=== PATIENT | male | born 1950 | race Caucasian/White ===

== ENCOUNTER 2023-01-28 07:52 | Outpatient (CLI) | payer MEDICARE, MEDICAID, SELFPAY | END 2023-01-28 07:53 | disposition home or self-care (01) | LOC: ANHAUDIO 07:54 | PROVIDERS: PCP Physician Assistant; Visit Provider Otolaryngology | DX: H90.3 Sensorineural hearing loss, bilateral (principal) | CPT/HCPCS: 92557; 92567 ==

== ENCOUNTER 2024-10-05 07:16 | Outpatient (CLI) | payer MEDICARE, MEDICAID, SELFPAY ==
--- NOTE | 2024-10-05 08:05 | ECG_ITS ---
Test Date: 2024-10-05 08:20:14 Measurements Intervals [place] Rate: 60 P: 46 VT: 200 QRS: 26 QRSD: 86 T: 44 QT: 413 QTc: 413 Interpretive Statements SINUS RHYTHM LOW QRS VOLTAGE IN PRECORDIAL LEADS [QRS DEFLECTION < 1.0 mV IN CHEST LEADS] POSSIBLE ANTERIOR MYOCARDIAL INFARCTION [30 ms Q WAVE IN V3/V4, OR R < 0.2 mV IN V4], OF INDETERMINATE AGE ABNORMAL ECG No previous ECG available for comparison Electronically Signed On 10-05-2024 10:59:44 RISK COMPLIANCE MANAGER by Wood Paz M.D.
[2024-10-05 08:43] LABS: Basophils Absolute Auto 0.1 K/mm3 (0.0-0.1); Basophils Percent Auto 0.7 % (0.2-1.2); Eosinophils Absolute Auto 0.3 K/mm3 (0-0.3); Eosinophils Percent Auto 4.9 % (0-4.4); Hematocrit 44.3 % (42.0-52.0); Hemoglobin 14.5 g/dL (14.0-18.0); Immature Granulocyte Absolute 0.02 K/mm3 (0.00-0.031); Immature Granulocyte Percent A 0.3 % (0-0.5); Lymphocytes Absolute Auto 1.51 K/mm3 (0.9-3.2); Lymphocytes Percent Auto 21.8 % (18.3-44.2); Mean Corpuscular HGB Conc 32.7 g/dl (32-36); Mean Corpuscular Hemoglobin 31.8 pg (26-34); Mean Corpuscular Volume 97.1 fl (80-100); Monocytes Absolute Auto 0.9 K/mm3 (0.1-0.6); Neutrophils Absolute Auto 4.1 K/mm3 (1.3-6.7); Neutrophils Percent Auto 59.3 % (45.5-73.1); Platelet Count Result 262 k/mm3 (150-375); Red Blood Count 4.56 M/mm3 (4.6-6.20); Red Cell Distribution Width 12.6 % (11.5-14.5); White Blood Count 6.9 K/mm3 (4.5-10.0)
[2024-10-05 08:49] LABS: Add Urine Microscopic? NO; Appearance Urine Clear (Clear); Bilirubin Urine Negative (Negative); Blood Urine Negative (Negative); Color Urine Yellow (Yellow); Glucose Urine UA Negative (Negative); Ketones Urine Negative (Negative); Leukocyte Esterase Ur Negative LEU/UL (Negative); Nitrate Urine Negative (Negative); Protein Urine Negative (Negative); Specific Grav Ur 1.015 (1.001-1.035); pH Urine 7.5 (5.0-9.0)
[2024-10-05 09:15] LABS: Anion Gap 5 mmol/L (4-12); Blood Urea Nitrogen 17 mg/dL (9-20); Calcium 10.2 mg/dL (8.4-10.2); Carbon Dioxide 31 mmol/L (22-30); Chloride 104 mmol/L (98-107); Estimated Glomerular Filt Rate 59; Glucose 116 mg/dL (65-110); Potassium 4.5 mmol/L (3.4-5.0); Prothrombin Time 14.1 Seconds (11.1-14.7); Sodium 140 mmol/L (137-145)
[2024-10-05 09:16] LABS: Partial Thromboplastin Time 33.3 Seconds (22.3-36.8)
== END 2024-10-05 07:17 | disposition home or self-care (01) ==
LOC: ANHSURGERY 07:23
PROVIDERS: PCP Internal Medicine; Visit Provider Neurological Surgery
DX: M48.062 Spinal stenosis, lumbar region with neurogenic claudication (principal); Z01.818 Encounter for other preprocedural examination
CPT/HCPCS: 36415; 80048; 81003; 85025; 85610; 85730; 93005

== ENCOUNTER 2024-10-05 09:20 | Outpatient (CLI) | payer MEDICARE, MEDICAID, SELFPAY ==
--- NOTE | ~2024-10-05 | MR_ITS ---
MRI of the lumbar spine Clinical History: Spinal stenosis Technique: Axial T2-weighted images, and sagittal T1-weighted, T2-weighted, and T2 fat-sat images wer e acquired. Findings: There is no fracture or subluxation of the lumbar spine. Vertebral bodies maintain normal h eight and alignment. No bone marrow signal reality seen. At L1-L2, there is no disc bulge or herniation. There is moderate facet arthropathy. No central canal stenosis or neural foraminal narrowing. At L2-L3, there is minimal disc bulge with advanced facet arthropathy. There is mild central canal st enosis/thecal sac compression. There is mild bilateral neural foraminal narrowing, right worse than l eft. At L3-L4, there is severe facet arthropathy without significant disc bulge or herniation. There is mi nimal central canal stenosis. There is minimal bilateral neural foraminal narrowing. At L4-L5, disc bulge and severe facet arthropathy result in severe spinal canal stenosis/thecal sac c ompression. There is moderate to advanced left neural foraminal narrowing, and mild right neural fora peter narrowing. At L5-S1, there is advanced facet arthropathy. No disc bulge or herniation. No spinal canal stenosis. There is mild bilateral neural foraminal narrowing, right worse than left. Paravertebral soft tissues are unremarkable. Impression: Severe degenerative spondylosis at L4-L5, as detailed above. Additional moderate degenerative changes, as above. Reviewed, dictated and finalized at [facility]. HAND Impression: Severe degenerative spondylosis at L4-L5, as detailed above. Additional moderate degenerative changes, as above.
== END 2024-10-05 09:21 | disposition home or self-care (01) ==
PROVIDERS: PCP Internal Medicine; Visit Provider Neurological Surgery
DX: M48.062 Spinal stenosis, lumbar region with neurogenic claudication (principal); M47.896 Other spondylosis, lumbar region
CPT/HCPCS: 72148

== ENCOUNTER 2024-12-14 08:26 | Outpatient (CLI) | payer MEDICARE, MEDICAID, SELFPAY ==
--- OUTSIDE RECORDS SUMMARY | 2024-12-14 08:57 | XMS_ITS | CONTINUITY OF CARE DOCUMENT ---
Author Name shy begum Address Unknown Organization [facility] Address [address] [place] [address] Phone [phone] Care Team Providers Care Business Insurance Agent Name Role Phone Nilson SIMPSON, Sveta Unavailable [phone] NICA ROSSI MD Unavailable NICA ROSSI MD Unavailable PROBLEMS Condition Status Date Provider Notes Hyperlipidemia active ? Sveta Devine MD Hypertension active ? Sveta Devine MD Shortness of breath- echo nm l LV, LVH, diastolic dysfn 08/24 active Sveta Devine MD Chest pain- CAth 04/23 - nl cors active Alli Devine MD Dizziness active Sveta Devine MD Leg edema, bilateral- venous insufficiency on ultrasound 08/24 active Sveta Devine MD CAD - mild CAD 10/10/24 active Dash Fry Cardiology examination active Dash Fry MCKENZIE--mild, no cpap active Ramez Godoy ENCOUNTERS Date Type Provider Location Encounter Diag nosis 3 - 3 In-person encounter Office Visit Sveta Devine MD [facility] Cardiology examinationCAD - mild CAD 10/10/24 7 - 7 In-person encounter Office Visit Sveta Devine MD [facility] 7 - 7 In-person encounter Office Visit Sveta Devine MD [facility] Shortness of breath- echo nml LV, LVH, diastolic dysfn 08/24Leg edema, bilateral- venous insufficiency on ultrasound 08/24 0 - 0 In-person encounter Office Visit Sveta Devine MD [facility] MCKENZIE--mild, no cpapLeg edema, bilateral- venous insufficiency on ultrasound 08/24 8 - 8 In-person encounter Office Visit Sveta Devine MD [facility] Chest pain- CAth 04/23 - nl cors 7 - 7 In-person encounter Office Visit Sveta Devine MD [facility] 0 - 0 In-person encounter Office Visit Sveta Devine MD [facility] 8 - 8 In-person encounter Office Visit Sveta Devine MD [facility] Chest pain- CAth 04/23 - nl cors 0 - 0 In-person encounter Office Visit Sveta Devine MD [facility] Shortness of breath- echo nml LV, LVH, diastolic dysfn 08/24Chest pain- CAth 04/23 - nl cors 9 - 9 In-person encounter Office Visit Sveta Devine MD [facility] HyperlipidemiaHypertensionShortness of breath- echo nml LV, LVH, diastolic dysfn 08/24Chest pain- CAth 04/23 - nl corsDizziness VITAL SIGNS Date Observation Value Provider Body Mass Index (Ratio) 43.85 kg/m2 Alli Devine MD blood pressure, diastolic 78 mm[Hg] Felicitas Toussaint blood pressure, systolic 112 mm[Hg] Krystal Toussaint oxygen saturation, oximetry 95 % Lauren Toussaint pulse rate 64 /min Lauren Toussaint respiratory rate E&M 13 /min Lauren Toussaint weight E&M 280 [lb_av] Lauren Toussaint height E&M 67 [in_i] Lauren Toussaint blood pressure, cuff size regular Felicitas Toussaint Body Mass Index (Ratio) 42.60 kg/m2 Alli Devine MD blood pressure, cuff size regular Ja rret blood pressure, diastolic 74 mm[Hg] Ja rret blood pressure, systolic 114 mm[Hg] Jar ret pulse rate 64 /min Claudy oxygen saturation, oximetry 96 % Claudy respiratory rate E&M 16 /min Claudy weight E&M 272 [lb_av] Claudy height E&M 67 [in_i] [facility] y Body Mass Index (Ratio) 43.54 kg/m2 Alli Devine MD blood pressure, cuff size regular Cierra mccloud Barry blood pressure, diastolic 72 mm[Hg] [facility] blood pressure, systolic 118 mm[Hg] Jarvis [facility] oxygen saturation, oximetry 93 % [facility] respiratory rate E&M 16 /min [facility] rate 77 /min [facility] weight E&M 278 [lb_av] [facility] height E&M 67 [in_i] [facility] Body Mass Index (Ratio) 44.16 kg/m2 Alli Devine MD blood pressure, diastolic 81 mm[Hg] Li nkLogic blood pressure, systolic 114 mm[Hg] [place] kLogic blood pressure, cuff size regular Ja rret blood pressure, diastolic 81 mm[Hg] Ja rret blood pressure, systolic 114 mm[Hg] Jar ret pulse rate 64 /min Claudy y oxygen saturation, oximetry 95 % Claudy respiratory rate E&M 12 /min Claudy weight E&M 282 [lb_av] Claudy y height E&M 67 [in_i] Claudy y Body Mass Index (Ratio) 43.85 kg/m2 Alli Devine MD blood pressure, cuff size regular tiffanie Grover blood pressure, diastolic 79 mm[Hg] tiffanie Grover blood pressure, systolic 119 mm[Hg] [facility] madison Grover weight E&M 280 [lb_av] Tala Grover height E&M 67 [in_i] Tala Grover pulse rate 71 /min Tala Grover oxygen saturation, oximetry 96 % Tala Grover respiratory rate E&M 18 /min Tala Grover Body Mass Index (Ratio) 42.16 kg/m2 Alli Devine MD pulse rate 65 /min Katelyn Mak respiratory rate E&M 18 /min Katelyn jackman weight E&M 269.2 [lb_av] Katelyn Mak oxygen saturation, oximetry 96 % Katelyn Mak blood pressure, cuff size large St acmagdalene Mak blood pressure, diastolic 78 mm[Hg] St acy Obdulio blood pressure, systolic 128 mm[Hg] Sta josefina Mak height E&M 67 [in_i] Katelynjosefina Mak Body Mass Index (Ratio) 41.50 kg/m2 Alli Devine MD blood pressure, cuff size large In cassandra [place] blood pressure, diastolic 100 mm[Hg] Mi cassandra [place] blood pressure, systolic 170 mm[Hg] [facility] [place] oxygen saturation, oximetry 98 % Judy Sim pulse rate 70 /min Judy stewart respiratory rate E&M 16 /min Elina jer Sim weight E&M 265 [lb_av] Judy Blake stewart height E&M 67 [in_i] Judy stewart Body Mass Index (Ratio) 40.87 kg/m2 Alli Devine MD respiratory rate E&M 16 /min [facility] blood pressure, diastolic 81 mm[Hg] [facility], systolic 134 mm[Hg] Ton [facility] oxygen saturation, oximetry 98 % [facility] pulse rate 88 /min [facility] weight E&M 261 [lb_av] [facility] height E&M 67 [in_i] [facility] Body Mass Index (Ratio) 44.32 kg/m2 Alli Devine MD blood pressure, cuff size large Cr radha Liao blood pressure, diastolic 96 mm[Hg] Cr radha Liao blood pressure, systolic 142 mm[Hg] Cry stal [place] oxygen saturation, oximetry 97 % Emily Liao respiratory rate E&M 17 /min Emily Liao pulse rate 77 /min Emily jean baptiste weight E&M 283 [lb_av] Emily jean baptiste height E&M 67 [in_i] Emily Nicole s Body Mass Index (Ratio) 44.32 kg/m2 Alli Devine MD blood pressure, diastolic 100 mm[Hg] Ki nikhil David blood pressure, systolic 150 mm[Hg] Oseas David oxygen saturation, oximetry 98 % Dmitri David respiratory rate E&M 16 /min Dmitri David pulse rate 65 /min [place] David blood pressure, resting Yes Kill een David weight E&M 283 [lb_av] [place] David height E&M 67 [in_i] Dmitri David ALLERGIES No Known Drug Allergies HISTORY OF MEDICATION USE Medication Status Instructions Dates Provider Indications [facility] ments atorvastatin 40 mg tablet active TAKE 1 TABLET BY MOUTH DAILY 12/07 Sveta Devine MD losartan-hydrochlorot hiazide 100-25 mg tablet active TAKE 1 TABLET BY MOUTH DAILY 12/07 Sveta Devine MD methocarbamol 750 mg tablet active TAKE 1 TABLET BY MOUTH FOUR TIMES A DAY Sveta Devine MD amlodipine 10 mg tablet active Take 1 tablet by mouth once a day 12/05 Sveta Devine MD gabapentin 600 mg tablet active Take 1 tablet by mouth once a day Sveta Devine MD atorvastatin 40 mg tablet completed TAKE 1 TABLET BY MOUTH EVERY DAY 07/24 - 12/07 Sveta Devine MD aspirin 81 mg tablet,chewable active TAKE 1 TABLET BY MOUTH EVERY DAY 05/26 Sveta Devine MD metoprolol tartrate 25 mg tablet active Take 1 tablet by mouth twice a day 05/26 Sveta Devine MD metoprolol tartrate 25 mg tablet completed Take 1 tablet by mouth twice a day TAKE 1 TABLET BY MOUTH TWICE A DAY 04/30 - 05/26 Romelia Christensen aspirin 81 mg tablet,chewable completed Take 1 tablet by mouth once a day TAKE 1 TABLET BY MOUTH EVERY DAY 04/30 - 05/26 Romelia Gaminos atorvastatin 40 mg tablet completed Take 1 tablet by mouth once a day TAKE 1 TABLET BY MOUTH EVERY DAY 04/30 - 07/24 Atiya Stock losartan-hydrochlorot hiazide 100-25 mg tablet completed Take 1 tablet by mouth once a day 04/21 - 12/07 Sveta Devine MD aspirin 81 mg tablet,delayed release (DR/EC) completed 1 tablet by mouth once a day 12/20 - 04/30 Judy Sim naproxen 500 mg tablet completed 1 tablet by mouth twice a day 12/20 - 03/08 Sveta Devine MD losartan 100 mg tablet completed Take 1 tablet once a day 12/20 - 04/21 Ramez Godoy hydrochlorothiazide 25 mg tablet completed tablet by mouth 12/20 - 04/21 Ramez Godoy amlodipine 10 mg tablet completed TAKE 1 TABLET DAILY 12/20 - 12/05 Margo Dickson NORVASC 5 MG ORAL TABLET completed 1 tab daily 05/31 - 12/20 Sveta Devine MD CLARITIN 10 MG ORAL CAPSULE completed 1 tab daily 05/10 - 12/20 Sveta Devine MD SIMVASTATIN 40 MG ORAL TABLET completed take 1 tab once daily 05/10 - 12/20 Sveta Devine MD HYZAAR 100-25 MG ORAL TABLET completed 1 Tab daily 07/14 - 12/20 Sveta Devine MD #90, 90 days supply, Filled SOCIAL HISTORY Date Observation Value Provider smoking status Never smoker Dash Fry smoking status Never smoker Yamileth Garay social history reviewed E&M revi ewed - no changes required Sveta Devine MD social history reviewed E&M revi ewed - no changes required Ramez Godoy social history E&M S moking History: Wai smith has never smoked. Sveta Devine MD social history reviewed E&M revi ewed - no changes required Sveta Devine MD smoking status Never smoker Tala Grover social history reviewed E&M revi ewed - no changes required Ramez Godoy social history reviewed E&M revi ewed - no changes required Ramez Godoy social history E&M S moking History: Wia smith has never smoked. Sveta Devine MD social history reviewed E&M revi ewed - no changes required Sveta Devine MD smoking status Never smoker Julieth Vargas social history reviewed E&M revi ewed - no changes required Sveta Devine MD social history E&M S moking History: P atient has never smoked. Sveta Devine MD smoking status Never smoker Emily Mccarty ams social history E&M S moking History: Wai smith has never smoked. Sveta Devine MD social history reviewed E&M revi ewed - no changes required Sveta Devine MD number of grandchildren Sveta Pugh porter Joann smoking status Never smoker Dmitri greenwood FAMILY HISTORY Family Member Condition First Degree Blood Relative No Known Fam bertha History INSURANCE PROVIDERS Payer name Policy type / Coverage type [place] red [facility] Medicaid 1 [id number] [place]IC[place] Medicare [id number] ADVANCE DIRECTIVES Name Date DISCUSSED - NO DECISION MADE TREATMENT PLAN Date Name Performer [id number],S, Ramez Oliver i [id number],S, Ramez Oliver i [id number],S, Ramez Oliver i [id number],S, Ramez Oliver i [id number],SRamez i [id number],B, Sveta Devine MD [id number],S, Sveta Devine MD [id number],S, Sveta Devine MD [id number],B, Sveta Dveine MD [id number],B, Ramez Oliver i [id number],S, Ramez Oliver i [id number],S, Ramez Oliver i [id number],S, Ramez Oliver i [id number],S, Ramez Oliver i [id number],S, Ramez Ahmedza i [id number],S, Ramez Ahmedza i [id number],W, Ramez Ahmedza i [id number],S, Ramez Ahmedza i [id number],B, Ramez Ahmedza i Cardiology Dash Nacht Cardiology Dash Nacht Cardiology Dash Nacht Cardiology:This visi t has been a part of the consistent, comprehensive, and ongoing management of the chronic medical condition(s) listed above for the patient. Dash Nacht Cardiology Dash Nacht Cardiology Ramez Ahmedzai Cardiology Ramez Ahmedzai Cardiology Ramez Ahmedzai Cardiology Ramez Ahmedzai Cardiology Ramez Ahmedzai Cardiology Sveta Devine MD Cardiology Sveta Devine MD Cardiology Sveta Devine MD Cardiology Sveta Devine MD Cardiology Ramez Ahmedzai Cardiology Ramez Ahmedzai Cardiology Ramez Ahmedzai Cardiology Ramez Ahmedzai Cardiology Ramez Ahmedzai Cardiology Ramez Ahmedzai Cardiology Ramez Ahmedzai Cardiology Ramez Ahmedzai Cardiology Ramez Ahmedzai Cardiology Ramez Ahmedzai Cardiology Sveta Devine MD Cardiology Sveta Devine MD Cardiology Sveta Devine MD Cardiology Sveta Devine MD Cardiology Sveta Devine MD Cardiology Sveta Devine MD Cardiology Sveta Devine MD Cardiology Sveta Devine MD Cardiology Sveta Devine MD Cardiology Sveta Devine MD Cardiology Sveta Devine MD Cardiology Sveta Devine MD Cardiology Sveta Devine MD Cardiology Sveta Devine MD Date Name Venous Doppler Bilat eral LE - Reflux Complete Echo RPM (remote patient monitoring) DLCO - 80196 FRC - 40021 FVC - 34968 Sleep Study Home Complete Echo Stress Regadenoson Sleep Study Home HISTORY OF PROCEDURES Procedure Date Procedure Name Provider Procedure Notes S tatus Complex e/m visit add on Sveta Devine MD completed EKG Sveta Devine MD completed EKG Sveta Devine MD completed EKG Sveta Devine MD completed FVC / MVV - 38434 Sveta Devine MD co mpleted FRC - 90137 Sveta Devine MD complete d SpO2 w/o 6min walk/titration Sveta Devine MD completed Regadenoson, 4 units Sveta Devine MD completed Cardiolite, 2 units Sveta Devine MD completed SPECT Images Sveta Devine MD complet ed Stress EKG Sveta Devine MD completed EKG Sveta Devine MD completed
--- OUTSIDE RECORDS SUMMARY | 2024-12-14 08:58 | XMS_ITS | Data Portability ---
Author Organization [facility] BORISJillian Bennett Jonel Address [address] [place] [address] Care Team Providers Care Pipe Bender Name Role Phone LANDEN KING Primary Care Provider [phone] Assessment Encounter Date Assessment Date Assessment LastModified by Organization Details LastModified Time 03/04/2024 03/04/2024 Blood work. Will try to get his old upper endoscopy I see Dominguez's is mentioned a couple of times I do not see a proton pump inhibitor on his current medicine list manage he is just I will see him back in 4 months for now he will continue current therapy [email or web address] Not available 03/20/2024 16:17:02 07/06/2024 07/06/2024 blood work. Colonoscopy. Continue current therapy. Follow up in 4 months. All diagnosis in the assessment and plan and they are management have been discussed see me in 4 months [email or web address] Not available 07/09/2024 13:27:25 Plan of Treatment Reminders Order Date Submit Date Provider Last Modified By Organization Details Last Modified Time Details Appointments ANY 15 2024 01:15P Vik Starkey MD Not available Not available Not available Lab HbA1c (hemogl obin A1c), blood 2022 023 [facility], [address], [address], [place], [address], 08/12/2023 08:29:21 CMP, serum or plasma 2022 023 [facility], [address], [address], [place], [address], 07/22/2023 06:18:16 albumin /creati nine, mass ratio, urine 2022 023 [facility], [address], [address], [place], [address], 07/22/2023 06:18:31 HbA1c (hemogl obin A1c), blood 2023 024 [facility], [address], [address], [place], [address], 03/05/2024 07:14:20 CBC w/ auto diff 2023 024 [facility], [address], [address], [place], [address], 03/05/2024 07:14:20 lipid panel, serum 2023 024 [facility], [address], [address], [place], [address], 03/05/2024 07:14:18 CMP, serum or plasma 2023 024 [facility], [address], [address], [place], [address], 03/05/2024 07:14:19 PSA, total, serum or plasma 2023 024 [facility], [address], [address], [place], [address], 07/07/2024 06:19:33 CBC w/ auto diff 2023 024 [facility], [address], [address], [place], [address], 07/07/2024 06:19:33 CMP, serum or plasma 2023 024 [facility], [address], [address], [place], [address], 07/07/2024 06:19:31 lipid panel, serum 2023 024 [facility], [address], [address], [place], [address], 07/07/2024 06:19:30 TSH, ultra-s ensitiv e, serum 2023 024 [facility], [address], [address], [place], [address], 07/07/2024 06:19:32 T3, free, serum or plasma 2023 024 [facility], [address] [facility] [address], [address], [place], [address], 07/07/2024 06:19:34 unliste d lab - T4, free 2023 024 [facility], [address] [facility], [address], [place], [address], 07/07/2024 06:19:31 Referral physica l therapi st referra l [address] [facility], [address] [place], [address], 06/18/2024 05:07:04 gastroe nterolo gist referra l - Please call patient for appoint ment, thanks! 2022 023 [place] [address] Andrae Mesa MD, [address] [facility], [address], [place], [address], 06/18/2024 05:07:05 pain managem ent referra l 2023 024 [email or web address] [facility], [address], [address], [place], [address], 06/18/2024 05:07:06 Procedures colonos copy screeni ng (PROC) 2023 024 [email or web address] [facility], [address] [facility] [address], [place], [address], 10/25/2024 11:37:14 Surgeries None recorde d. Imaging MRI, lumbar spine, w/o contras t 2022 023 [facility]), [address] [facility], [place], [address], 10/15/2023 15:09:15 Medication Orders gabapen tin 600 mg tablet 2022 023 [facility]/Pharmacy #[id number], [address], [place], [address], 07/21/2023 10:51:31 atorvas tatin 20 mg tablet 2022 023 [facility]/Pharmacy #[id number], [address], [place], [address], 07/21/2023 10:51:29 Difluca n 150 mg tablet 2022 023 [email or web address] [facility]/Pharmacy #[id number], [address], [place], [address], 03/04/2024 11:40:17 Calcium 600 + D(3) 600 mg-5 mcg (200 unit) capsule 2022 024 ATHENAFAX [facility]/Pharmacy #[id number], [address], [place], [address], 03/04/2024 11:41:56 Celebre x 100 mg capsule 2022 023 [id number] [address], [place], [address], 03/04/2024 11:40:22 amlodip ine 10 mg tablet 2022 023 [id number], [address] [place], [address], 07/21/2023 10:51:30 losarta n 100 mg-hydr ochloro thiazid e 25 mg tablet 2022 023 [id number], [address] , [place], [address], 07/21/2023 10:51:30 metopro lol tartrat e 25 mg tablet 2022 023 [id number], [address] [place], [address], 07/21/2023 10:51:31 gabapen tin 600 mg tablet 2022 023 [id number], [address] [place], [address], 03/04/2024 12:52:42 Celebre x 100 mg capsule 2022 023 [id number], [address] [place], [address], 03/04/2024 11:40:22 Calcium 600 + D(3) 600 mg-5 mcg (200 unit) capsule 2022 023 [id number], [address] [place], [address], 03/04/2024 11:40:35 sildena rigoberto 50 mg tablet 2022 024 [facility][id number], [address], [place], [place], [id number], 03/04/2024 11:41:26 metopro lol tartrat e 25 mg tablet 2022 023 [id number], [address], [place], [address], 10/16/2023 11:48:36 losarta n 100 mg-hydr ochloro thiazid e 25 mg tablet 2022 023 [id number], [address], [place], [address], 10/16/2023 11:48:35 amlodip ine 10 mg tablet 2022 023 [id number], [address], [place], [address], 10/16/2023 11:48:36 gabapen tin 600 mg tablet 2023 024 [id number], [address] [place], [address], 03/20/2024 16:11:44 omepraz ole 20 mg capsule ,delaye d release 2023 024 [id number], [address] , [place], [address], 07/06/2024 12:19:08 Patient TargetsNo targets recorded. Patient Instructions Encounter Date Encounter Id Patient Instructions Last Modified By Organization Details Last Modified Time 07/21/2023 [id number] learning about t ype 2 diabetes [facility] Not available 07/21/2023 10:26:55 type 2 diabetes: care instructions [facility] Not available 07/21/2023 10:26:55 A healthy lifestyle: care instructions [facility] Not available 07/21/2023 10:51:23 gastroesophageal reflux disease (GERD): care instructions [facility] Not available 07/21/2023 10:26:55 high cholesterol : care instructions [facility] Not available 07/21/2023 10:26:55 osteoarthritis: care instructions [facility] Not available 07/21/2023 10:45:41 learning about h igh blood pressure [facility] Not available 07/21/2023 10:26:54 09/17/2023 [id number] lumbar spinal stenosis: care instructions [facility] Not available 09/17/2023 10:39:34 learning about t ype 2 diabetes si Not available 09/17/2023 10:39:34 type 2 diabetes: care instructions [facility] Not available 09/17/2023 10:39:34 A healthy lifestyle: care instructions [facility] Not available 09/17/2023 10:39:34 high cholesterol : care instructions [facility] Not available 09/17/2023 10:39:34 Nonalcoholic Fat ty Liver Disease (NAFLD): Care Instructions [facility] Not available 09/17/2023 10:39:34 10/16/2023 [id number] learning about h igh blood pressure [facility] Not available 10/16/2023 11:48:31 high cholesterol : care instructions [facility] Not available 10/16/2023 11:48:31 07/06/[id number] nandini Jaramillo omeprazole 20 mg 1 qd for GERD, follow up 4 months [email or web address] Not available 07/06/2024 10:40:43 Reason for Referral Physical Therapist Referral for Spinal stenosis of lumbar region Referring Physician: Landen King, Internal Medicine, Encounter Date: 09/17/2023 Synchronizer Referral for Screening for malignant neoplasm of colon Please call patient for appointment, thanks! Referring Physician: Landen King, Internal Medicine, Encounter Date: 10/16/2023 Pain Management Referral for Spinal stenosis of lumbar region Referring Physician: Gallito Starkey, Internal Medicine, Encounter Date: 03/04/2024 Results Created Date Observation Date Name Description Value Unit Range Abnormal Flag Note LastModifiedBy Organization Detail LastModifiedTime 07/21/20 23 07/21/2023 COMP. METAB OLIC PANEL (14) glucose 111 mg/dL 70-99 above high normal Not Available [facility] & [address], [address], 07/22/2023 06:18:16 07/21/20 23 07/21/2023 COMP. METAB OLIC PANEL (14) BUN 19 mg/dL 8-27 Not Available [facility] & [address], [address], 07/22/2023 06:18:16 07/21/20 23 07/21/2023 COMP. METAB OLIC PANEL (14) creatinine 1.01 mg/dL 0.76-1 .27 Not Available [address], [address], 07/22/2023 06:18:16 07/21/20 23 07/21/2023 COMP. METAB OLIC PANEL (14) eGFR 79 >=60 Units for eGFR value s are mL/mi n/1.7 3 The eGFR Calcu latio n has not been valid ated for patie nts under the age of 18. If test resul ts are displ ayed for a patie nt under the age of 18, disre zayda that value . Not Available [address], [address], 07/22/2023 06:18:16 07/21/20 23 07/21/2023 COMP. METAB OLIC PANEL (14) BUN/creatini ne ratio 18 10-24 Not Available [address], [address], 07/22/2023 06:18:16 07/21/20 23 07/21/2023 COMP. METAB OLIC PANEL (14) sodium 139 mmol/ L 134-14 4 Not Available [address], [address], 07/22/2023 06:18:16 07/21/20 23 07/21/2023 COMP. METAB OLIC PANEL (14) potassium 4.8 mmol/ L 3.5-5. 2 Not Available [address], [address], 07/22/2023 06:18:16 07/21/20 23 07/21/2023 COMP. METAB OLIC PANEL (14) chloride 101 mmol/ L 96-106 Not Available [address], [address], 07/22/2023 06:18:16 07/21/20 23 07/21/2023 COMP. METAB OLIC PANEL (14) carbon dioxide, total 29 mmol/ L 20-29 Not Available [address], [address], 07/22/2023 06:18:16 07/21/20 23 07/21/2023 COMP. METAB OLIC PANEL (14) calcium 10.4 mg/dL 8.6-10 .2 above high normal Not Available [address], [address], 07/22/2023 06:18:16 07/21/20 23 07/21/2023 COMP. METAB OLIC PANEL (14) protein, total 7.0 g/dL 6.0-8. 5 Not Available [address], [address], 07/22/2023 06:18:16 07/21/20 23 07/21/2023 COMP. METAB OLIC PANEL (14) albumin 4.5 g/dL 3.8-4. 8 Not Available [address], [address], 07/22/2023 06:18:16 07/21/20 23 07/21/2023 COMP. METAB OLIC PANEL (14) globulin, total 2.5 g/dL 1.5-4. 5 Not Available [address], [address], 07/22/2023 06:18:16 07/21/20 23 07/21/2023 COMP. METAB OLIC PANEL (14) A/G ratio 2.0 1.2-2. 2 Not Available [address], [address], 07/22/2023 06:18:16 07/21/20 23 07/21/2023 COMP. METAB OLIC PANEL (14) bilirubin, total 0.6 mg/dL 0.0-1. 2 Not Available [address], [address], 07/22/2023 06:18:16 07/21/20 23 07/21/2023 COMP. METAB OLIC PANEL (14) alkaline phosphatase 46 IU/L 44-121 Not Available [address], [address], 07/22/2023 06:18:16 07/21/20 23 07/21/2023 COMP. METAB OLIC PANEL (14) AST (SGOT) 32 IU/L 0-40 Not Available [address], [address], 07/22/2023 06:18:16 07/21/20 23 07/21/2023 COMP. METAB OLIC PANEL (14) ALT (SGPT) 48 IU/L 0-44 above high normal Not Available [address], [address], 07/22/2023 06:18:16 07/21/20 23 07/22/2023 ALBUM IN/CR EATIN INE RATIO ,URIN E creatinine, urine 70.2 mg/dL notest ab. Not Available [address], [address], 07/22/2023 06:18:31 09/19/20 23 07/22/2023 ALBUM IN/CR EATIN INE RATIO ,URIN E albumin, urine 3.5 ug/mL notest ab. Not Available [address], [address], 07/22/2023 06:18:31 07/21/20 23 07/22/2023 ALBUM IN/CR EATIN INE RATIO ,URIN E alb/creat ratio 5 mg/g_ creat 0-29 Annel l: 0 - 29 Moder ately incre ased: 30 - 300 Sever shilo incre ased: >300 Not Available [address], [address], 07/22/2023 06:18:31 07/21/20 23 07/22/2023 DIABE LUIS DANIEL PATIE NT EDUCA TION pdf Not applic able Not Available [address], [address], 07/22/2023 06:18:32 07/21/20 23 07/22/2023 DIABE LUIS DANIEL PATIE NT EDUCA TION pdf . Not Available [address], [address], 07/22/2023 06:18:17 08/11/2008/12/2023 HCV ANTIB EMMETT hep C virus Ab Non Reacti ve nonrea ctive HCV antib emmett alone does not diffe renti ate betwe en previ ously resol florentino infec tion and activ e infec tion. Equiv ocal and React kelechi HCV antib emmett resul ts shoul d be follo wed up with an HCV RNA test to suppo rt the diagn osis of activ e HCV infec tion. Not Available [facility]) [address] [facility], [place], [address], 08/12/2023 08:29:20 08/11/2008/12/2023 HEP B SURFA CE AB, QUAL hep B surface Ab, qual Non Reacti ve Non React kelechi: Incon siste nt with immun ity, less than 10 mIU/m L React kelechi: Consi stent with immun ity, great er than 9.9 mIU/m L Not Available [facility] ([facility]) [address] [place], [address], 08/12/2023 08:29:22 08/11/2008/12/2023 HBSAG SCREE N HBsAg screen Negati ve negati ve Not Available [facility] ([facility]) [address] [place], [address], 08/12/2023 08:29:23 08/11/2008/12/2023 HEMOG LOBIN A1C hemoglobin A1C 6.0 % 4.8-5. 6 above high normal Predi abete s: 5.7 - 6.4 Diabe luis daniel: >6.4 Glyce tameka contr ol for adult s with diabe luis daniel: <7.0 Not Available [facility] ([facility]) [address] [facility], [place], [address], 08/12/2023 08:29:21 03/04/20 24 03/05/2024 LIPID PANEL cholesterol, total 138 mg/dL 100-19 9 Not Available [facility]) [address] [place], [address], 03/05/2024 07:14:18 03/04/20 24 03/05/2024 LIPID PANEL triglyceride s 105 mg/dL 0-149 Not Available [facility] [address] [place], [address], 03/05/2024 07:14:18 03/04/20 24 03/05/2024 LIPID PANEL HDL cholesterol 45 mg/dL >39 Not Available [facility] [address] [place], [address], 03/05/2024 07:14:18 03/04/20 24 03/05/2024 LIPID PANEL VLDL cholesterol angela 19 mg/dL 5-40 Not Available [facility] [address] [place], [address], 03/05/2024 07:14:18 03/04/20 24 03/05/2024 LIPID PANEL LDL chol calc ([facility]) 74 mg/dL 0-99 Not Available [facility] [address] [place], [address], 03/05/2024 07:14:18 03/04/20 24 03/05/2024 COMP. METAB OLIC PANEL (14) glucose 97 mg/dL 70-99 Not Available [facility]) [address] [facility], [place], [address], 03/05/2024 07:14:19 03/04/20 24 03/05/2024 COMP. METAB OLIC PANEL (14) BUN 15 mg/dL 8-27 Not Available [facility]) [address] [place], [address], 03/05/2024 07:14:19 03/04/20 24 03/05/2024 COMP. METAB OLIC PANEL (14) creatinine 1.14 mg/dL 0.76-1 .27 Not Available [facility]) [address] [place], [address], 03/05/2024 07:14:19 03/04/20 24 03/05/2024 COMP. METAB OLIC PANEL (14) eGFR 68 mL/mi n/1.7 3 >59 Not Available [facility] ([facility]) [address] [place], [address], 03/05/2024 07:14:19 03/04/20 24 03/05/2024 COMP. METAB OLIC PANEL (14) BUN/creatini ne ratio 13 10-24 Not Available [facility] [address], [place], [address], 03/05/2024 07:14:19 03/04/20 24 03/05/2024 COMP. METAB OLIC PANEL (14) sodium 138 mmol/ L 134-14 4 Not Available [facility]) [address], [place], [address], 03/05/2024 07:14:19 03/04/20 24 03/05/2024 COMP. METAB OLIC PANEL (14) potassium 4.6 mmol/ L 3.5-5. 2 Not Available [facility]) [address] [place], [address], 03/05/2024 07:14:19 03/04/20 24 03/05/2024 COMP. METAB OLIC PANEL (14) chloride 100 mmol/ L 96-106 Not Available [facility]) [address], [place], [address], 03/05/2024 07:14:19 03/04/20 24 03/05/2024 COMP. METAB OLIC PANEL (14) carbon dioxide, total 24 mmol/ L 20-29 Not Available [facility]) [address] [place], [address], 03/05/2024 07:14:19 03/04/20 24 03/05/2024 COMP. METAB OLIC PANEL (14) calcium 10.0 mg/dL 8.6-10 .2 Not Available [facility]) [address] [place], [address], 03/05/2024 07:14:19 03/04/20 24 03/05/2024 COMP. METAB OLIC PANEL (14) protein, total 6.6 g/dL 6.0-8. 5 Not Available [facility]) [address] [place], [address], 03/05/2024 07:14:19 03/04/20 24 03/05/2024 COMP. METAB OLIC PANEL (14) albumin 4.4 g/dL 3.8-4. 8 Not Available [facility]) [address] [facility], [place], [address], 03/05/2024 07:14:19 03/04/20 24 03/05/2024 COMP. METAB OLIC PANEL (14) globulin, total 2.2 g/dL 1.5-4. 5 Not Available [facility]) [address] [facility], [place], [address], 03/05/2024 07:14:19 03/04/20 24 03/05/2024 COMP. METAB OLIC PANEL (14) A/G ratio 2.0 1.2-2. 2 Not Available [facility]) [address] [facility], [place], [address], 03/05/2024 07:14:19 03/04/20 24 03/05/2024 COMP. METAB OLIC PANEL (14) bilirubin, total 0.6 mg/dL 0.0-1. 2 Not Available [facility]) [address] [facility], [place], [address], 03/05/2024 07:14:19 03/04/20 24 03/05/2024 COMP. METAB OLIC PANEL (14) alkaline phosphatase 58 IU/L 44-121 Not Available [facility] [address] [facility], [place], [address], 03/05/2024 07:14:19 03/04/20 24 03/05/2024 COMP. METAB OLIC PANEL (14) AST (SGOT) 30 IU/L 0-40 Not Available [facility]) [address] [facility], [place], [address], 03/05/2024 07:14:19 03/04/20 24 03/05/2024 COMP. METAB OLIC PANEL (14) ALT (SGPT) 42 IU/L 0-44 Not Available [facility]) [address] [facility], [place], [address], 03/05/2024 07:14:19 03/04/20 24 03/05/2024 HEMOG LOBIN A1C hemoglobin A1C 6.2 % 4.8-5. 6 above high normal Predi abete s: 5.7 - 6.4 Diabe luis daniel: >6.4 Glyce tameka contr ol for adult s with diabe luis daniel: <7.0 Not Available [facility] ([facility]) [address] [facility], [place], [address], 03/05/2024 07:14:19 03/04/20 24 03/05/2024 CBC WITH DIFFE RENTI AL/PL ATELE T WBC 6.8 x10e3 /uL 3.4-10 .8 Not Available [facility]) [address] [facility], [place], [address], 03/05/2024 07:14:20 03/04/20 24 03/05/2024 CBC WITH DIFFE RENTI AL/PL ATELE T RBC 4.66 x10e6 /uL 4.14-5 .80 Not Available [facility]) [address] [facility], [place], [address], 03/05/2024 07:14:20 03/04/20 24 03/05/2024 CBC WITH DIFFE RENTI AL/PL ATELE T hemoglobin 14.2 g/dL 13.0-1 7.7 Not Available [facility]) [address] [place], [address], 03/05/2024 07:14:20 03/04/20 24 03/05/2024 CBC WITH DIFFE RENTI AL/PL ATELE T hematocrit 42.7 % 37.5-5 1.0 Not Available [facility]) [address] [facility], [place], [address], 03/05/2024 07:14:20 03/04/20 24 03/05/2024 CBC WITH DIFFE RENTI AL/PL ATELE T MCV 92 fL 79-97 Not Available [facility]) [address] [facility], [place], [address], 03/05/2024 07:14:20 03/04/20 24 03/05/2024 CBC WITH DIFFE RENTI AL/PL ATELE T MCH 30.5 pg 26.6-3 3.0 Not Available [facility]) [address] [facility], [place], [address], 03/05/2024 07:14:20 03/04/20 24 03/05/2024 CBC WITH DIFFE RENTI AL/PL ATELE T MCHC 33.3 g/dL 31.5-3 5.7 Not Available [facility]) [address] [facility], [place], [address], 03/05/2024 07:14:20 03/04/20 24 03/05/2024 CBC WITH DIFFE RENTI AL/PL ATELE T RDW 12.3 % 11.6-1 5.4 Not Available [facility]) [address] [facility], [place], [address], 03/05/2024 07:14:20 03/04/20 24 03/05/2024 CBC WITH DIFFE RENTI AL/PL ATELE T platelets 275 x10e3 /uL 150-45 0 Not Available [facility]) [address] [facility], [place], [address], 03/05/2024 07:14:20 03/04/20 24 03/05/2024 CBC WITH DIFFE RENTI AL/PL ATELE T neutrophils 51 % notest ab. Not Available [facility]) [address] [facility], [place], [address], 03/05/2024 07:14:20 03/04/20 24 03/05/2024 CBC WITH DIFFE RENTI AL/PL ATELE T lymphs 29 % notest ab. Not Available [facility]) [address] [facility], [place], [address], 03/05/2024 07:14:20 03/04/20 24 03/05/2024 CBC WITH DIFFE RENTI AL/PL ATELE T monocytes 12 % notest ab. Not Available [facility]) [address] [facility], [place], [address], 03/05/2024 07:14:20 03/04/20 24 03/05/2024 CBC WITH DIFFE RENTI AL/PL ATELE T eos 7 % notest ab. Not Available [facility] [address] [facility], [place], [address], 03/05/2024 07:14:20 03/04/20 24 03/05/2024 CBC WITH DIFFE RENTI AL/PL ATELE T basos 1 % notest ab. Not Available [facility] [address] [facility], [place], [address], 03/05/2024 07:14:20 03/04/20 24 03/05/2024 CBC WITH DIFFE RENTI AL/PL ATELE T neutrophils (absolute) 3.6 x10e3 /uL 1.4-7. 0 Not Available [facility]) [address] [place], [address], 03/05/2024 07:14:20 03/04/20 24 03/05/2024 CBC WITH DIFFE RENTI AL/PL ATELE T lymphs (absolute) 2.0 x10e3 /uL 0.7-3. 1 Not Available [facility]) [address] [place], [address], 03/05/2024 07:14:20 03/04/20 24 03/05/2024 CBC WITH DIFFE RENTI AL/PL ATELE T monocytes(ab solute) 0.8 x10e3 /uL 0.1-0. 9 Not Available [facility] [address] [facility], [place], [address], 03/05/2024 07:14:20 03/04/20 24 03/05/2024 CBC WITH DIFFE RENTI AL/PL ATELE T eos (absolute) 0.5 x10e3 /uL 0.0-0. 4 above high normal Not Available [facility] [address] [facility], [place], [address], 03/05/2024 07:14:20 03/04/20 24 03/05/2024 CBC WITH DIFFE RENTI AL/PL ATELE T baso (absolute) 0.0 x10e3 /uL 0.0-0. 2 Not Available [facility]) [address] [facility], [place], [address], 03/05/2024 07:14:20 03/04/20 24 03/05/2024 CBC WITH DIFFE RENTI AL/PL ATELE T immature granulocytes 0 % notest ab. Not Available [facility]) [address] [facility], [place], [address], 03/05/2024 07:14:20 03/04/20 24 03/05/2024 CBC WITH DIFFE RENTI AL/PL ATELE T immature grans (abs) 0.0 x10e3 /uL 0.0-0. 1 Not Available [facility]) [address] [place], [address], 03/05/2024 07:14:20 07/06/20 24 07/07/2024 LIPID PANEL cholesterol, total 205 mg/dL 100-19 9 above high normal Not Available [facility] ([facility]) [address] [place], [address], 07/07/2024 06:19:30 07/06/20 24 07/07/2024 LIPID PANEL triglyceride s 155 mg/dL 0-149 above high normal Not Available [facility] ([facility]) [address] [place], [address], 07/07/2024 06:19:30 07/06/20 24 07/07/2024 LIPID PANEL HDL cholesterol 44 mg/dL >39 Not Available [facility] ([facility]) [address] [place], [address], 07/07/2024 06:19:30 07/06/20 24 07/07/2024 LIPID PANEL VLDL cholesterol angela 28 mg/dL 5-40 Not Available [facility] ([facility]) [address] [place], [address], 07/07/2024 06:19:30 07/06/20 24 07/07/2024 LIPID PANEL LDL chol calc ([facility]) 133 mg/dL 0-99 above high normal Not Available [facility] ([facility]) [address] [place], [address], 07/07/2024 06:19:30 07/06/20 24 07/07/2024 T4, FREE T4,free([facility] ct) 0.99 NG/dL 0.82-1 .77 Not Available [facility] [facility] [address] [place], [address], 07/07/2024 06:19:31 07/06/20 24 07/07/2024 COMP. METAB OLIC PANEL (14) glucose 114 mg/dL 70-99 above high normal Not Available [facility] ([facility]) [address] [place], [address], 07/07/2024 06:19:31 07/06/20 24 07/07/2024 COMP. METAB OLIC PANEL (14) BUN 14 mg/dL 8-27 Not Available [facility] ([facility]) [address] [place], [address], 07/07/2024 06:19:31 07/06/20 24 07/07/2024 COMP. METAB OLIC PANEL (14) creatinine 1.19 mg/dL 0.76-1 .27 Not Available [facility] ([facility]) [address] [place], [address], 07/07/2024 06:19:31 07/06/20 24 07/07/2024 COMP. METAB OLIC PANEL (14) eGFR 64 mL/mi n/1.7 3 >59 Not Available [facility] ([facility]) [address] [place], [address], 07/07/2024 06:19:31 07/06/20 24 07/07/2024 COMP. METAB OLIC PANEL (14) BUN/creatini ne ratio 12 10-24 Not Available [facility] ([facility]) [address] [place], [address], 07/07/2024 06:19:31 07/06/20 24 07/07/2024 COMP. METAB OLIC PANEL (14) sodium 139 mmol/ L 134-14 4 Not Available [facility] ([facility]) [address] [place], [address], 07/07/2024 06:19:31 07/06/20 24 07/07/2024 COMP. METAB OLIC PANEL (14) potassium 4.6 mmol/ L 3.5-5. 2 Not Available [facility] ([facility]) [address] [place], [address], 07/07/2024 06:19:31 07/06/20 24 07/07/2024 COMP. METAB OLIC PANEL (14) chloride 99 mmol/ L 96-106 Not Available [facility] ([facility]) [address] [place], [address], 07/07/2024 06:19:31 07/06/20 24 07/07/2024 COMP. METAB OLIC PANEL (14) carbon dioxide, total 24 mmol/ L 20-29 Not Available [facility] ([place] [facility]) [address] [place], [address], 07/07/2024 06:19:31 07/06/20 24 07/07/2024 COMP. METAB OLIC PANEL (14) calcium 10.2 mg/dL 8.6-10 .2 Not Available [facility] ([facility]) [address] [place], [address], 07/07/2024 06:19:31 07/06/20 24 07/07/2024 COMP. METAB OLIC PANEL (14) protein, total 7.2 g/dL 6.0-8. 5 Not Available [facility] ([facility]) [address] [place], [address], 07/07/2024 06:19:31 07/06/20 24 07/07/2024 COMP. METAB OLIC PANEL (14) albumin 4.6 g/dL 3.8-4. 8 Not Available [facility] ([facility]) [address] [place], [address], 07/07/2024 06:19:31 07/06/20 24 07/07/2024 COMP. METAB OLIC PANEL (14) globulin, total 2.6 g/dL 1.5-4. 5 Not Available [facility] ([facility]) [address] [place], [address], 07/07/2024 06:19:31 07/06/20 24 07/07/2024 COMP. METAB OLIC PANEL (14) bilirubin, total 0.6 mg/dL 0.0-1. 2 Not Available [facility] ([place] [facility]) [address] [place], [address], 07/07/2024 06:19:31 07/06/20 24 07/07/2024 COMP. METAB OLIC PANEL (14) alkaline phosphatase 49 IU/L 44-121 Not Available [facility] [address], [place], [address], 07/07/2024 06:19:31 07/06/20 24 07/07/2024 COMP. METAB OLIC PANEL (14) AST (SGOT) 34 IU/L 0-40 Not Available [facility] ([facility]) [address], [place], [address], 07/07/2024 06:19:31 07/06/20 24 07/07/2024 COMP. METAB OLIC PANEL (14) ALT (SGPT) 45 IU/L 0-44 above high normal Not Available [facility] ([facility]) [address] [facility], [place], [address], 07/07/2024 06:19:31 07/06/20 24 07/07/2024 TSH TSH 1.550 uIU/m L 0.450- 4.500 Not Available [facility] ([facility]) [address] [facility], [place], [address], 07/07/2024 06:19:32 07/06/20 24 07/06/2024 CBC WITH DIFFE RENTI AL/PL ATELE T WBC 6.5 x10e3 /uL 3.4-10 .8 Not Available [facility] ([facility]) [address] [facility], [place], [address], 07/07/2024 06:19:33 07/06/20 24 07/06/2024 CBC WITH DIFFE RENTI AL/PL ATELE T RBC 4.93 x10e6 /uL 4.14-5 .80 Not Available [facility] ([facility]) [address] [facility], [place], [address], 07/07/2024 06:19:33 07/06/20 24 07/06/2024 CBC WITH DIFFE RENTI AL/PL ATELE T hemoglobin 15.5 g/dL 13.0-1 7.7 Not Available [facility] ([facility]) [address] [facility], [place], [address], 07/07/2024 06:19:33 07/06/2007/06/2024 CBC WITH DIFFE RENTI AL/PL ATELE T hematocrit 47.3 % 37.5-5 1.0 Not Available [facility] ([facility]) [address] [facility], [place], [address], 07/07/2024 06:19:33 07/06/2007/06/2024 CBC WITH DIFFE RENTI AL/PL ATELE T MCV 96 fL 79-97 Not Available [facility] ([facility]) [address] [facility], [place], [address], 07/07/2024 06:19:33 07/06/2007/06/2024 CBC WITH DIFFE RENTI AL/PL ATELE T MCH 31.4 pg 26.6-3 3.0 Not Available [facility] ([facility]) [address] [place], [address], 07/07/2024 06:19:33 07/06/2007/06/2024 CBC WITH DIFFE RENTI AL/PL ATELE T MCHC 32.8 g/dL 31.5-3 5.7 Not Available [facility] ([facility]) [address] [place], [address], 07/07/2024 06:19:33 07/06/2007/06/2024 CBC WITH DIFFE RENTI AL/PL ATELE T RDW 12.0 % 11.6-1 5.4 Not Available [facility] ([facility]) [address] [place], [address], 07/07/2024 06:19:33 07/06/2007/06/2024 CBC WITH DIFFE RENTI AL/PL ATELE T platelets 285 x10e3 /uL 150-45 0 Not Available [facility]) [address] [facility], [place], [address], 07/07/2024 06:19:33 07/06/20 24 07/06/2024 CBC WITH DIFFE RENTI AL/PL ATELE T neutrophils 53 % notest ab. Not Available [facility] ([facility]) [address] [facility], [place], [address], 07/07/2024 06:19:33 07/06/20 24 07/06/2024 CBC WITH DIFFE RENTI AL/PL ATELE T lymphs 27 % notest ab. Not Available [facility] ([facility]) [address] [facility], [place], [address], 07/07/2024 06:19:33 07/06/20 24 07/06/2024 CBC WITH DIFFE RENTI AL/PL ATELE T monocytes 13 % notest ab. Not Available [facility] ([facility]) [address] [facility], [place], [address], 07/07/2024 06:19:33 07/06/20 24 07/06/2024 CBC WITH DIFFE RENTI AL/PL ATELE T eos 6 % notest ab. Not Available [facility] ([facility]) [address] [facility], [place], [address], 07/07/2024 06:19:33 07/06/20 24 07/06/2024 CBC WITH DIFFE RENTI AL/PL ATELE T basos 1 % notest ab. Not Available [facility] ([facility]) [address] [facility], [place], [address], 07/07/2024 06:19:33 07/06/20 24 07/06/2024 CBC WITH DIFFE RENTI AL/PL ATELE T neutrophils (absolute) 3.5 x10e3 /uL 1.4-7. 0 Not Available [facility] ([facility]) [address] [facility], [place], [address], 07/07/2024 06:19:33 07/06/20 24 07/06/2024 CBC WITH DIFFE RENTI AL/PL ATELE T lymphs (absolute) 1.7 x10e3 /uL 0.7-3. 1 Not Available [facility] ([facility]) [address] [facility], [place], [address], 07/07/2024 06:19:33 07/06/20 24 07/06/2024 CBC WITH DIFFE RENTI AL/PL ATELE T monocytes(ab solute) 0.8 x10e3 /uL 0.1-0. 9 Not Available [facility] ([facility]) [address] [facility], [place], [address], 07/07/2024 06:19:33 07/06/20 24 07/06/2024 CBC WITH DIFFE RENTI AL/PL ATELE T eos (absolute) 0.4 x10e3 /uL 0.0-0. 4 Not Available [facility] ([facility]) [address] [facility], [place], [address], 07/07/2024 06:19:33 07/06/20 24 07/06/2024 CBC WITH DIFFE RENTI AL/PL ATELE T baso (absolute) 0.1 x10e3 /uL 0.0-0. 2 Not Available [facility] ([facility]) [address] [facility], [place], [address], 07/07/2024 06:19:33 07/06/2007/06/2024 CBC WITH DIFFE RENTI AL/PL ATELE T immature granulocytes 0 % notest ab. Not Available [facility] ([facility]) [address] [facility], [place], [address], 07/07/2024 06:19:33 07/06/20 24 07/06/2024 CBC WITH DIFFE RENTI AL/PL ATELE T immature grans (abs) 0.0 x10e3 /uL 0.0-0. 1 Not Available [facility] ([facility]) [address] [facility], [place], [address], 07/07/2024 06:19:33 07/06/20 24 07/07/2024 PROST ATE-S PECIF IC AG prostate specific Ag 0.7 NG/mL 0.0-4. 0 Sascha ECLIA metho dolog y. Accor ding to the Ameri can [employer] g[employer] iatio n, Serum PSA shoul d decre ase and remai n at undet ectab le level s after radic al prost atect berenice. The AUA defin es bioch emica l recur rence as an initi al PSA value 0.2 ng/mL or great er follo wed by a subse quent confi rmato ry PSA value 0.2 ng/mL or great er. Value s obtai chano with diffe rent assay metho ds or kits canno t be used inter mancia eably . Resul ts canno t be inter prete d as absol eulalia evide nce of the prese nce or absen ce of ba verde se. Not Available [facility] ([facility]) [address] [facility], [place], [address], 07/07/2024 06:19:33 07/06/20 24 07/07/2024 TRIIO DOTHY ROSARIO E (T3), FREE triiodothyro nine (T3), free 3.5 pg/mL 2.0-4. 4 Not Available [facility] ([facility]) [address] [facility], [place], [address], 07/07/2024 06:19:34 09/11/20 23 09/11/2023 US, abdom en No observ ation record ed. [email or web address] [address] [facility], [place], [address], 09/15/2023 16:40:51 10/15/20 23 10/15/2023 MRI, lumba r spine , w/o contr ast No observ ation record ed. [facility] [address] [place], [address], 10/16/2023 11:27:02 08/11/20 24 08/11/2024 CT, abdom en + pelvi s, w/o contr ast No observ ation record ed. [facility] [address] [place], [address], 08/15/2024 10:22:34 10/05/20 24 10/05/2024 MRI, lumba r spine , w/o contr ast No observ ation record ed. [place] [id number], [place], [address], 10/06/2024 09:49:47 10/18/20 24 10/18/2024 XR, chest , 2 view No observ ation record ed. [facility] [address] [place], [address], 10/31/2024 14:42:29 10/19/20 24 10/19/2024 NM, myoca rdial perfu romi scan No observ ation record ed. [facility] [address] [place], [address], 10/31/2024 14:42:43 Result Notes None recorded. Problems Name Problem SNOMED Code Status Onset Date Resolution Date Notes Provider Name and Address Organization Details Recorded Time Lipoma of skin 818054538 Active 2017 Not Available [facility] 3 03:51:03 Screenin g for malignan t neoplasm of prostate Active 2017 Not Available [facility] 3 03:51:04 Bladder muscle dysfunct ion - overacti ve Active 2017 Not Available [facility] 3 03:51:03 Hepatiti s C screenin g Completed 201703/17/2018 Jerry Fuentes PA-C Attn: [place], [address] , [place] [facility] 8 10:56:01 Carpal tunnel syndrome of right wrist 48976319533 9108 Active 2017 repaired February 16, 2018. Dr. 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 797922808 Active 2019 Not Available [facility] 3 03:51:04 Costal chondrit is 32763229 Active 2019 Not Available [facility] 3 03:51:04 Chronic idiopath ic constipa tion 17221673 Active 2021 Not Available [facility] 3 03:51:04 Venereal disease screenin g Active 2021 Not Available [facility] 3 03:51:03 Right flank pain 866723135 Active 2021 Not Available [facility] 3 03:51:03 Dysuria 27221047 Active 2021 Not Available [facility] 3 03:51:04 Trigger thumb of right hand 43846853156 9105 Active 2021 Not Available [facility] 3 03:51:03 Bilatera l hearing loss 63494891 Active 2021 Not Available [facility] 3 03:51:04 Administ ration of tetanus vaccine Active 2021 Not Available [facility] 3 03:51:03 Administ ration of pneumoco ccal vaccine Active 2021 Not Available [facility] 3 03:51:03 Cough 18603780 Active 2021 Not Available [facility] 3 03:51:04 Screenin g for malignan t neoplasm of colon Active 2021 Not Available [facility] 3 03:51:03 Spinal stenosis of lumbar region 26714068 Active 2023 Gallito Starkey MD Attn: Accounting ,[address] [place], [address] , [place] [facility] 4 16:17:03 Chronic low back pain 292335647 Active 2023 Gallito Starkey MD Attn: Accounting ,[address] [place], [address] , [place] [facility] 4 16:17:07 Gastroes ophageal reflux disease without esophagi tis 436402284 Active 2023 Gallito Starkey MD Attn: Accounting ,[address] [place], [address] , [place] [facility] 4 16:17:25 Steatosi s of liver 331256961 Active 2023 Gallito Starkey MD Attn: Accounting ,[address] [place], [address] , [place] [facility] 4 16:17:39 Essentia l hyperten romi 21982234 Active Not Available [facility] 3 03:51:04 Hyperlip idemia 87341805 Active Not Available [facility] 3 03:51:04 Contact dermatit is 37829842 Active Not Available [facility] 3 03:51:04 Sinusiti s 44795229 Active Not Available [facility] 3 03:51:03 Type 2 diabetes mellitus 10612558 Active Not Available [facility] 3 03:51:04 Gastroes ophageal reflux disease 055154029 Active Not Available [facility] 3 03:51:03 Dominguez' s esophagu s 572391578 Active Not Available [facility] 3 03:51:03 Impotenc e Active Not Available [facility] 3 03:51:03 Snoring 00528198 Active Not Available [facility] 3 03:51:04 Follicul itis 99131170 Active Not Available [facility] 3 03:51:03 Tinea corporis 06371214 Active Not Available [facility] 3 03:51:04 Onychomy cosis 552935520 Active Not Available [facility] 3 03:51:04 Eczema 92792147 Active Not Available [facility] 3 03:51:04 Shoulder pain 06182607 Active Not Available [facility] 3 03:51:04 Chronic neck pain 19687145503 07 Active Not Available [facility] 3 03:51:03 Notes:screws in left ankle. Problem Notes None recorded. Procedures Surgical History Date Name Laterality Status Provider Name and Address Organization Details Recorded Time 3 Cerumen removal without microscope completed [facility] [place] [facility] 01/21/2023 14:50:45 Imaging Results Imaging Date Name Status LastModified by Organ [facility] Details LastModified Time 09/11/2023 US, abdomen completed [facility] [address] [place], [address], 09/15/2023 16:40:51 10/15/2023 MRI, lumbar spine, w/o contrast completed [facility] [address] [place], [address], 10/16/2023 11:27:02 08/11/2024 CT, abdomen + pelvis, w/o contrast completed [facility] [address] [place], [address], 08/15/2024 10:22:34 10/05/2024 MRI, lumbar spine, w/o contrast completed [address] [place] [address], [address], 10/06/2024 09:49:47 10/18/2024 XR, chest, 2 view completed [facility] [address] [place], [address], 10/31/2024 14:42:29 10/19/2024 NM, myocardial perfusion scan completed [facility] [address] [place], [address], 10/31/2024 14:42:43 Procedure Notes None recorded. Medical Equipment None Reported. Allergies No known drug allergies Medications Name Sig Start Date Stop Date Status Note LastModified by Organization Details LastModified Time levofloxa geraldo 750 mg tabs 12/14 completed Not Available Not Available Not Available betametha sone dipropion ate 0.05 % oint 12/14 completed Not Available Not Available Not Available levofloxa geraldo 500 mg tabs 12/14 completed Not Available Not Available Not Available ranitidin e hcl 150 mg tabs 12/14 completed Not Available Not Available Not Available simvastat in 40 mg tabs 03/17 completed Not Available Not Available Not Available dulera 200-5 mcg/act aero 12/16 completed Not Available Not Available Not Available omeprazol e 20 mg cpdr 12/16 completed Not Available Not Available Not Available escitalop raghavendra oxalate 20 mg tabs 12/16 completed Not Available Not Available Not Available losartan potassium 100 mg tabs 12/16 completed Not Available Not Available Not Available ofloxacin 0.3 % soln 12/14 completed Not Available Not Available Not Available gavilyte- g 236 gm solr 12/16 completed Not Available Not Available Not Available tamsulosi n hcl 0.4 mg caps 12/16 completed Not Available Not Available Not Available prednison e 20 mg tabs 12/16 completed Not Available Not Available Not Available Prescript ion - Prior Authoriza tion Request 05/20 completed Not Available Not Available Not Available oxybutyni n chloride er 5 mg tb24 12/16 completed Not Available Not Available Not Available glimepiri de 2 mg tabs 12/14 completed Not Available Not Available Not Available metformin hcl 500 mg tabs 12/14 completed Not Available Not Available Not Available hydrocodo ne/acetam inophen 5-325 mgtabs 12/16 completed Not Available Not Available Not Available ketorolac trometham ine 0.4 % soln 12/16 completed Not Available Not Available Not Available triamcino lone acetonide 0.1 % oint 12/16 completed Not Available Not Available Not Available griseoful angle ultramicr osize 250 mgtabs 12/16 completed Not Available Not Available Not Available proair hfa 108 (90 base) mcg/act aers 12/16 completed Not Available Not Available Not Available nifedipin e ER 30 mg tablet,ex tended release 24 hr 12/16 completed constipa tion Not Available Not Available Not Available cyclobenz aprine 10 mg tablet 02/23 completed 04-29-22 Denied due to not under coverage in their system Not Available Not Available Not Available atorvasta tin 40 mg tablet TAKE 1 TABLET BY MOUTH EVERY DAY 05/20 completed Not Available Not Available Not Available metformin 500 mg tablet Take 0.5 tablets every day by oral route in the evening for 10 days. 12/14 completed Not Available Not Available Not Available promethaz ine-DM 6.25 mg-15 mg/5 mL oral syrup Take 5 mL every 4 hours by oral route for 10 days. 11/20 completed Not Available Not Available Not Available gabapenti n 600 mg tablet Take 1 tablet every day by oral route as directed for 30 days. 2023 active Not Available Not Available Not Avai lable atorvasta tin 20 mg tablet TAKE 1 TABLET BY MOUTH EVERY DAY AT BEDTIME FOR 30 DAYS active Not Available Not Available No t Available sildenafi l 50 mg tablet Take 1 tablet 3 times a week by oral route as directed for 30 days. 03/04 completed Not Available Not Available Not Available azithromy geraldo 250 mg tablet TAKE 2 TABLETS BY MOUTH TODAY, THEN TAKE 1 TABLET DAILY FOR 4 DAYS 05/20 completed Not Available Not Available Not Available miconazol e nitrate 2 % topical cream Apply 1 applicat ion twice a day by topical route for 30 days. 12/14 completed Not Available Not Available Not Available tramadol 37.5 mg-acetam inophen 325 mg tablet 12/16 completed Not Available Not Available Not Available tizanidin e 4 mg tablet TAKE 1 TABLET BY MOUTH EVERY 6 HOURS NEEDED FOR 30 DAYS 03/[address] Starkey Not Available Not Available Not Available fluconazo le 150 mg tablet TAKE 1 TABLET BY MOUTH EVERY DAY DIRECTED FOR 14 DAYS 03/04 completed Not Available Not Available Not Available hydrocodo ne 5 mg-acetam inophen 325 mg tablet 04/25 completed Not Available Not Available Not Available phenazopy ridine 200 mg tablet Take 1 tablet 3 times a day by oral route for 2 days. 11/20 completed Not Available Not Available Not Available prednison e 20 mg tablet PLEASE SEE ATTACHED FOR DETAILED DIRECTIO NS 11/20 completed Not Available Not Available Not Available metronida zole 500 mg tablet TAKE 1 TABLET BY MOUTH EVERY 12 HOURS 05/20 completed Not Available Not Available Not Available amlodipin e 5 mg tablet TAKE 1 TABLET BY MOUTH EVERY DAY 04/25 completed on 10 mg Not Available Not Available Not Available calcium 600 mg (as carbonate )-vitamin D3 5 mcg (200 unit) tablet TAKE 2 TABLETS BY MOUTH EVERY DAY DIRECTED 03/04 completed Not Available Not Available Not Available ciproflox acin 500 mg tablet Take 1 tablet every 12 hours by oral route for 10 days. 11/20 completed Not Available Not Available Not Available sulfameth oxazole 800 mg-trimet hoprim 160 mg tablet 12/16 completed Not Available Not Available Not Available peg-elect rolyte solution 420 gram oral solution DRINK 1/2 OF MIXTURE AT 5 PM ON 04-01 AND THE OTHER 1/2 AT 5 AM ON 04-02 DIRECTED 04/25 completed Not Available Not Available Not Available simvastat in 40 mg tablet 1 tab po qhs 04/25 completed Not Available Not Available Not Available glimepiri de 2 mg tablet Take 1 tablet every day by oral route in the morning for 30 days. 12/14 completed Not Available Not Available Not Available losartan 100 mg-hydroc hlorothia zide 25 mg tablet TAKE 1 TABLET BY MOUTH EVERY DAY active Not Available Not Available No t Available methocarb jose 750 mg tablet TAKE 1 TABLET BY MOUTH FOUR TIMES A DAY *NOT COVERED* active Not Available Not Available No t Available dicyclomi ne 20 mg tablet TAKE 1 TABLET BY MOUTH THREE TIMES A DAY 04/25 completed Not Available Not Available Not Available amlodipin e 10 mg tablet TAKE 1 TABLET BY MOUTH EVERY DAY active Not Available Not Available No t Available benzonata te 100 mg capsule TAKE 1 CAPSULE BY MOUTH EVERY 8 HOURS NEEDED FOR COUGH/CO NGESTION 05/20 completed Not Available Not Available Not Available cephalexi n 500 mg capsule TAKE 1 CAPSULE BY MOUTH EVERY 8 HOURS FOR 10 DAYS 02/18 completed Not Available Not Available Not Available triamcino lone acetonide 0.1 % topical ointment APPLY A THIN LAYER TO THE AFFECTED AREA(S) BY TOPICAL ROUTE 2 TIMES PER DAY 04/25 completed Not Available Not Available Not Available ranitidin e 150 mg tablet Take 1 tablet twice a day by oral route before meals for 30 days. 12/14 completed Not Available Not Available Not Available docusate sodium 100 mg capsule Take 1 capsule twice a day by oral route for 30 days. 02/23 completed Not Available Not Available Not Available oxybutyni n chloride ER 5 mg tablet,ex tended release 24 hr Take 1 tablet every day by oral route in the morning for 30 days. 12/16 completed Not Available Not Available Not Available omeprazol e 20 mg capsule,d elayed release TAKE 1 CAPSULE BY MOUTH EVERY DAY IN THE MORNING active Not Available Not Available No t Available Banophen 25 mg capsule TAKE 1 CAPSULE BY MOUTH TWICE A DAY 03/04 completed Not Available Not Available Not Available aspirin 81 mg chewable tablet TAKE 1 TABLET BY MOUTH EVERY DAY active Not Available Not Available No t Available diclofena c sodium 75 mg tablet,de layed release 12/16 completed Not Available Not Available Not Available bisacodyl 5 mg tablet,de layed release TAKE 6 TABLETS BY MOUTH ONCE AT 8 AM ON 04-01 completed Not Available Not Available Not Available hydrochlo rothiazid e 25 mg tablet Take 1 tablet every day by oral route for 30 days. 04/25 completed Not Available Not Available Not Available Viagra 100 mg tablet Take 1 tablet every day by oral route as needed for 10 days. 12/14 completed Not Available Not Available Not Available cefuroxim e axetil 500 mg tablet TAKE 1 TABLET BY MOUTH TWICE A DAY FOR 3 WEEKS active Not Available Not Available No t Available levofloxa geraldo 750 mg tablet Take 1 tablet every day by oral route for 10 days. 12/14 completed Not Available Not Available Not Available methylpre dnisolone 4 mg tablets in a dose pack TAKE 6 TABLETS ON DAY 1 DIRECTED ON PACKAGE AND DECREASE BY 1 TAB EACH DAY FOR A TOTAL OF 6 DAYS 05/20 completed Not Available Not Available Not Available celecoxib 100 mg capsule TAKE 1 CAPSULE BY MOUTH EVERY DAY AFTER MEALS 03/04 completed Not Available Not Available Not Available betametha sone dipropion ate 0.05 % topical ointment APPLY A THIN LAYER TO THE AFFECTED AREA(S) BY TOPICAL ROUTE twice DAILY to lower legs . 03/04 completed Not Available Not Available Not Available losartan 100 mg tablet TAKE 1 TABLET BY MOUTH EVERY DAY IN THE MORNING 04/25 completed Not Available Not Available Not Available fluticaso ne propionat e 50 mcg/actua tion nasal spray,jaylen pension INSTILL 2 SPRAYS BY INTRANAS AL ROUTE EVERY DAY 03/04 completed Not Available Not Available Not Available naproxen 500 mg tablet TAKE 1 TABLET BY MOUTH EVERY 12 HOURS NEEDED FOR PAIN. TAKE WITH FOOD active Not Available Not Available No t Available griseoful angle ultramicr osize 250 mg tablet Take 1 tablet twice a day by oral route for 14 days. 12/16 completed Not Available Not Available Not Available amoxicill in 875 mg-potass ium clavulana te 125 mg tablet TAKE 1 TABLET ORAL ROUTE EVERY 12 HOURS FOR 7 DAYS 03/04 completed Not Available Not Available Not Available hydroxyzi ne pamoate 25 mg capsule 12/16 completed Not Available Not Available Not Available escitalop raghavendra 20 mg tablet Take 1 tablet every day by oral route in the evening for 30 days. 12/16 completed Not Available Not Available Not Available cyclobenz aprine 5 mg tablet TAKE 1 TABLET BY MOUTH EVERY 8 HOURS 04/25 completed Not Available Not Available Not Available metoprolo l tartrate 25 mg tablet TAKE 1 TABLET BY MOUTH TWICE A DAY active Not Available Not Available No t Available Vesicare 5 mg tablet 01/01 completed oxybutyn in chloride ER 5 mg tablet,e xtended release 24 hr ordered. Not Available Not Available Not Available Calcium 600 with Vitamin D3 600 mg-10 mcg (400 unit) chewable tablet TAKE 2 CAPSULES BY MOUTH EVERY DAY DIRECTED 03/04 completed Not Available Not Available Not Available Calcium 600 + D(3) 600 mg-5 mcg (200 unit) capsule Take 2 capsules every day by oral route as directed for 30 days. 03/04 completed Not Available Not Available Not Available Dulera 200 mcg-5 mcg/actua tion HFA aerosol inhaler 12/16 completed Not Available Not Available Not Available Linzess 145 mcg capsule Take 1 capsule every day by oral route for 30 days. 05/20 completed Not Available Not Available Not Available Pennsaid 20 mg/gram/a ctuation (2 %) topical soln in metered-d ose pump APPLY 2 PUMPS (40 MG) TO THE AFFECTED KNEE(S) BY TOPICAL ROUTE 2 TIMES PER DAY 04/25 completed Not Available Not Available Not Available Vitals Date Recorded Body height Body mass index (BMI) Body weight Heart rate Oxygen saturation Oxygen saturation in Arterial blood by Pulse oximetry Systolic blood pressure Diastolic blood pressure Provider Name and Address Organization Details Last Updated DateTime 3 170.18 cm 44.2 kg/m2 901228. 05 g 63 /min 98 % 98 % 132 mm[Hg] 77 mm[Hg] Keertih Mak MA [place] [facility] 3 09:55:57 Date Recorded Body height Body mass index (BMI) Body weight Heart rate Oxygen saturation Oxygen saturation in Arterial blood by Pulse oximetry Systolic blood pressure Diastolic blood pressure Provider Name and Address Organization Details Last Updated DateTime 3 170.18 cm 43.7 kg/m2 256531. 27 g 66 /min 98 % 98 % 142 mm[Hg] 76 mm[Hg] Keerthi Mak MA [facility] 3 10:07:04 Date Recorded Body height Body mass index (BMI) Body weight Heart rate Oxygen saturation Oxygen saturation in Arterial blood by Pulse oximetry Systolic blood pressure Diastolic blood pressure Provider Name and Address Organization Details Last Updated DateTime 3 170.18 cm 43.1 kg/m2 011815. 9 g 59 /min 98 % 98 % 148 mm[Hg] 82 mm[Hg] Keerthi Mak MA [facility] 3 11:03:00 Date Recorded Body height Body mass index (BMI) Body weight Heart rate Oxygen saturation Oxygen saturation in Arterial blood by Pulse oximetry Systolic blood pressure Diastolic blood pressure Provider Name and Address Organization Details Last Updated DateTime 4 170.18 cm 42.6 kg/m2 892244. 41 g 63 /min 97 % 97 % 124 mm[Hg] 82 mm[Hg] Guillermina Angelo MA [facility] 4 11:34:19 Date Recorded Body height Body mass index (BMI) Body weight Heart rate Oxygen saturation Oxygen saturation in Arterial blood by Pulse oximetry Systolic blood pressure Diastolic blood pressure Provider Name and Address Organization Details Last Updated DateTime 4 170.18 cm 43.9 kg/m2 845114. 3 g 64 /min 96 % 96 % 138 mm[Hg] 68 mm[Hg] Tawanna Bender MA [facility] 4 09:31:46 Social History Question Answer Notes LastModified by Organizat ion Details LastModified Time Tobacco Smoking Status Never Smoker Almas Rojas MA null, [facility] 02/02/2015 11:19:52 Do You Have An Advance Directive? No [email or web address] Information n ot available 02/23/2023 What Is Your Level Of Alcohol Consumption? None Information not available 02/02/2015 What Is Your Level Of Caffeine Consumption? Heavy Information not available 02/02/2015 How Much Tobacco Do You Chew? None Information not available 05/07/2015 In The 14 Days Before Symptom Onset, Have You Had Close Contact With A Laboratory-confirm ed COVID-19 While That Case Was Ill? No Information n ot available 01/26/2023 In The 14 Days Before Symptom Onset, Have You Had Close Contact With A Person Who Is Under Investigation For COVID-19 While That Person Was Ill? No Information not available 01/26/2023 Have You Been To An Area Known To Be High Risk For COVID-19? No Information not available 01/26/2023 What Type Of Diet Are You Following? REGULAR Information n ot available 05/07/2015 Marital Status Informatio n not available 05/07/2015 What Was The Date Of Your Most Recent Tobacco Screening? 03/04/2024 [email or web address] Information not available 03/04/2024 How Much Tobacco Do You Smoke? No Information not available 05/07/2015 Do You Use Any Illicit Or Recreational Drugs? No Information not available 11/20/2022 Do You Or Have You Ever Used Any Other Forms Of Tobacco Or Nicotine? No Information not available 11/20/2022 Sex: Unknown Functional Status Question Answer Note LastModified by Organization D etails LastModified Time What is your exercise level? None Information not available 05/07/2015 Mental Status None recorded. Family History Relationship Description Onset Age of this Age Resolved Age Notes LastModified by Organization Details LastModified Time Mother Diabetes mellitus Not available 2014 11:41:25 Mother Malignant tumor of kidney Not available 2014 11:41:25 Father Heart disease Not available 2014 11:41:25 Medical History Condition Response Muscle, Joint, or Bone Problems Y High Blood Pressure Y Blood Clots Y Immunizations Vaccine Type Date Status Note Provider Nam e and Address Organization Details Recorded Time Influenza, split virus, quadrivalent, preservative 5 completed Not Available [facility] 11/19/2019 02:46:07 Tdap 2 completed AMOS [place] [facility] 05/27/2022 12:18:14 pneumococcal polysaccharide PPV23 2 completed AMOS [place] [facility] 05/27/2022 12:16:32 Past Encounters Encounter ID Performer Location Encounter Start Date Encounter Closed Date Diagnosis/Indication Diagnosis SNOMED-CT Code Diagnosis ICD10 Code Diagnosis Note [id number] Roel (Adult Med) [address] [place] [address] 80117-210 0 02/02/2015 10:57:17 02/02/2015 15:40:57 Essential hypertension 10996570 Hyperlipidemia 08095537 Contact dermatitis 60852475 Sinusitis 98212403 Type 2 julien betes mellitus 94199432 Acute whee zy bronchitis 734574870 [id number] FRANCISCO J Elena (Adult Med) [address] [place] [address] 80611-215 0 05/07/2015 11:10:48 05/07/2015 12:06:09 Contact dermatitis 23212386 Essential hypertension 73435377 Hyperlipidemia 32251327 Gastroesop hageal reflux disease 819957264 [id number] FRANCISCO J Elena (Adult Med) [address] [place] [address] [id number] 0 07/18/2015 09:42:21 07/18/2015 10:39:23 Dominguez's esophagus 898693266 Contact dermatitis 14802459 Essential hypertension 58215434 Gastroesop hageal reflux disease 271783007 Hyperlipidemia 61211077 Type 2 julien betes mellitus 72413162 Impotence 504905118 Adult heal th examination 952458399 Snoring 49739216 tosses , turns, wakes up gasping , present fpor years getting worse. [id number] NATHAN Lackey (Adult Med) [address] [place] [address] [phone] 0 04/21/2016 14:00:25 04/21/2016 18:04:40 Gastroesophageal reflux disease 343980315 K21.0 Hyperlipidemia 84482574 E78.5 Type 2 julien betes mellitus 73431400 E11.9 Acute whee zy bronchitis 112290835 J20.9 Contact dermatitis 04066 004 L25.9 Essential hypertension 74029134 I10 Screening for malignant neoplasm of prostate 299017260 Z12.5 [id number] NATHAN Lackey (Adult Med) [address] [place] [address] 87554-801 0 06/16/2016 10:10:37 06/16/2016 11:22:57 Tinea corporis 68734555 B35.4 Dominguez's esophagus 3029 12388 K22.70 Essential hypertension 34560618 I10 Gastroesop hageal reflux disease 439635431 K21.0 Hyperlipidemia 87940714 E78.5 Impotence 192653029 N52. 9 Type 2 julien betes mellitus 34976973 E11.9 Onychomycosis 199866402 B35.1 Eczema 94396422 L30.9 [id number] Shilpi Katzjessica Sevilla (Adult Med) [address] [place] [address] [id number] 0 08/14/2016 10:28:14 08/14/2016 11:21:53 Eczema 94257849 L30.9 Essential hypertension 11854459 I10 Gastroesop hageal reflux disease 867319928 K21.0 Hyperlipidemia 96452999 E78.5 Type 2 julien betes mellitus 94854349 E11.9 Snoring 57957606 R06.83 tosses , turns, wakes up gasping , present fpor years getting worse. Shoulder pain 95523063 M 25.512 Chronic neck pain 270952 6392 107 M54.2 [id number] NATHAN Lackey (Adult Med) [address] [place] [address] [id number] 0 12/14/2017 15:21:23 12/14/2017 16:09:39 Folliculitis 54987972 L73.9 Contact dermatitis 51145 004 L25.9 Lipoma of skin 331810789 D17.30 right middle finger , lateral aspect Acute whee zy bronchitis 410848657 J20.9 Essential hypertension 37699762 I10 Type 2 julien betes mellitus 18811865 E11.9 Hyperlipidemia 21390357 E78.5 Screening for malignant neoplasm of prostate 399159573 Z12.5 Bladder mu scle dysfunction - overactive 822792261 N32.81 Dominguez's esophagus 3029 66080 K22.70 Gastroesop hageal reflux disease 327296397 K21.0 [id number] NATHAN Lackey (Adult Med) [address] [place] [address] [id number] 0 02/11/2018 09:58:55 02/11/2018 11:12:54 Hepatitis C screening 684262591 Z11.59 Gastroesop hageal reflux disease 514739889 K21.0 Type 2 julien betes mellitus 45342093 E11.9 Hyperlipidemia 01124089 E78.5 Essential hypertension 71209024 I10 [id number] NATHAN Lackey (Adult Med) [address] [place] [address] 91535-938 0 03/17/2018 09:52:40 03/17/2018 11:30:30 Dominguez's esophagus 883331420 K22.70 Initiate omperazole 20mg QD to minimize risk of esophageal cancer. Refer for repeat EGD Type 2 juilen betes mellitus 52487832 E11.9 Sugars well-contr olled at home. C/W early regimen. Refer to podiatry. Hyperlipidemia 00983188 E78.5 C/W current regimen. Essential hypertension 29257989 I10 Elevated to 175/10 today in clinic off meds. Patient reports well controlled pressures of less than 120/80 at home. Recheck in clinic in 10 days. Hyperkalemia 90098871 E8 7.5 Elevated at 5.2 at last check. Repeat BMP. Visual impairment 158782 003 H54.7 Patient reports 6-7 months of increased blurriness of vision. Refer to ophthamolo gy. Gastroesop hageal reflux disease 289318286 K21.0 Joint pain 10698923 M25. 50 Patient has been told he has RA in the past. Pruritic rash 53794601 L 28.2 Chronic x6-7 years. Unclear etiology Refer to derm [id number] NATHAN Lackey (Adult Med) [address] [place] [address] [id number] 0 05/12/2018 10:24:15 05/12/2018 11:31:22 Carpal tunnel syndrome of right wrist 4792740703 50505 G56.01 Bladder mu scle dysfunction - overactive 043711139 N32.81 Gastroesop hageal reflux disease 274192496 K21.0 Dominguez's esophagus 3029 56776 K22.70 Initiate omperazole 20mg QD to minimize risk of esophageal cancer. Refer for repeat EGD Impotence 266974501 N52. 9 Type 2 julien betes mellitus 49187103 E11.9 Sugars well-contr olled at home. C/W early regimen. Refer to podiatry. Hyperlipidemia 60153783 E78.5 C/W current regimen. Essential hypertension 54000376 I10 Elevated to 175/10 today in clinic off meds. Patient reports well controlled pressures of less than 120/80 at home. Recheck in clinic in 10 days. [id number] NATHAN Lackey (Adult Med) [address] [place] [address] [id number] 0 07/14/2018 11:17:58 07/14/2018 12:35:39 Low back pain 466266254 M54.5 Depressive disorder 3548 9007 F33.8 Essential hypertension 67029359 I10 Elevated to 175/10 today in clinic off meds. Patient reports well controlled pressures of less than 120/80 at home. Recheck in clinic in 10 days. Anxiety 81764930 F41.9 Type 2 julien betes mellitus 97822817 E11.9 Sugars well-contr olled at home. C/W early regimen. Refer to podiatry. Dominguez's esophagus 3029 26272 K22.70 Initiate omperazole 20mg QD to minimize risk of esophageal cancer. Refer for repeat EGD Hyperlipidemia 55537765 E78.5 C/W current regimen. [id number] NATHAN Lackey (Adult Med) [address] [place] [address] [id number] 0 12/16/2019 10:38:30 12/16/2019 12:04:17 Hyperlipidemia 75664722 E78.5 C/W current regimen. Essential hypertension 72344722 I10 Elevated to 175/10 today in clinic off meds. Patient reports well controlled pressures of less than 120/80 at home. Recheck in clinic in 10 days. Constipation 87119303 K5 9.00 Chest pain 43033418 R07. 9 Dominguez's esophagus 3029 12883 K22.70 Initiate omperazole 20mg QD to minimize risk of esophageal cancer. Refer for repeat EGD Depressive disorder 3548 9007 F33.8 Screening for malignant neoplasm of prostate 127302721 Z12.5 High hemog lobin A1c level 790874902 R73.09 Eczema 54217552 L30.9 Contact dermatitis 02777 004 L25.9 Costal chondritis 282741 04 M94.0 Type 2 julien betes mellitus 52824755 E11.9 Sugars well-contr olled at home. C/W early regimen. Refer to podiatry. Low back pain 969535846 M54.5 Gastroesop hageal reflux disease 480261944 K21.0 [id number] NATHAN Lackey (Adult Med) [address] [place] [address] 80937-708 0 04/25/2022 11:25:22 04/28/2022 14:11:09 Essential hypertension 85988268 I10 Elevated to 175/10 today in clinic off meds. Patient reports well controlled pressures of less than 120/80 at home. Recheck in clinic in 10 days. Gastroesop hageal reflux disease 317615950 K21.9 Hyperlipidemia 15116499 E78.5 C/W current regimen. Low back pain 673072040 M54.50 Contact dermatitis 45356 004 L25.9 Type 2 julien betes mellitus 52011973 E11.9 Sugars well-contr olled at home. C/W early regimen. Refer to podiatry. Chronic id iopathic constipation 20497423 K59.04 Screening for malignant neoplasm of prostate 845998560 Z12.5 Anxiety 45356689 F41.9 Dominguez's esophagus 3029 67979 K22.70 Initiate omperazole 20mg QD to minimize risk of esophageal cancer. Refer for repeat EGD Depressive disorder 0076 9007 F33.8 [id number] NATHAN Lackey (Adult Med) [address] [place] [address] [id number] 0 05/27/2022 09:29:10 05/27/2022 11:21:46 Essential hypertension 64321623 I10 Elevated to 175/10 today in clinic off meds. Patient reports well controlled pressures of less than 120/80 at home. Recheck in clinic in 10 days. Gastroesop hageal reflux disease 663948005 K21.9 High hemog lobin A1c level 926458721 R73.09 Hyperlipidemia 43419342 E78.5 C/W current regimen. Low back pain 734241870 M54.50 Type 2 julien betes mellitus 72132398 E11.9 Sugars well-contr olled at home. C/W early regimen. Refer to podiatry. Venereal d isease screening 484063920 Z11.3 Right flank pain 4244707 09 R10.9 Trigger th umb of right hand 1659880959 74235 M65.311 Bilateral hearing loss 72614172 H91.93 Administra tion of tetanus vaccine 409443105 Z23 Administra tion of pneumococcal vaccine 14210497 Z23 Cough 69924383 R05.9 Anxiety 41375970 F41.9 Dominguez's esophagus 3029 32862 K22.70 Initiate omperazole 20mg QD to minimize risk of esophageal cancer. Refer for repeat EGD Chronic id iopathic constipation 49279264 K59.04 Depressive disorder 3548 9007 F33.8 Onychomycosis 989481100 B35.1 [id number] NATHAN Lackey (Adult Med) [address] [place] [address] 55815-807 0 06/30/2022 09:29:37 07/01/2022 09:10:07 Dominguez's esophagus 586516836 K22.70 Initiate omperazole 20mg QD to minimize risk of esophageal cancer. Refer for repeat EGD Chronic id iopathic constipation 30579697 K59.04 Essential hypertension 97943450 I10 Elevated to 175/10 today in clinic off meds. Patient reports well controlled pressures of less than 120/80 at home. Recheck in clinic in 10 days. Hyperlipidemia 77685136 E78.5 C/W current regimen. Low back pain 822296721 M54.50 Type 2 julien betes mellitus 55528833 E11.9 Sugars well-contr olled at home. C/W early regimen. Refer to podiatry. Cough 00801461 R05.9 Screening for malignant neoplasm of colon 632567712 Z12.11 Carpal jeremías jamie syndrome of right wrist 6797989717 84099 G56.01 Depressive disorder 3548 9007 F33.8 Gastroesop hageal reflux disease 149144252 K21.9 [id number] MD Roel Pablo (Adult Med) [address] [place] [address] 01300-404 0 11/20/2022 09:38:36 11/25/2022 12:05:50 Morbid obesity 259417971 E66.01 BMI is 50.8, he has been advised to watch his diabetic diet, low salt, low animal fat diet, and lose some weight. Type 2 julien betes mellitus 96057973 E11.9 Will do A!c today . 5.8% Essential hypertension 10671633 I10 BP is 120/70 as 11-20-201 3. Screening for malignant neoplasm of colon 820559281 Z12.11 Right abdomen pain after each BM, family histor of cancer. older brother has liver cancer. Dyslipidemia 699272944 E 78.5 Low animal fat diet. Family his tory of diabetes mellitus 156040698 Z83.3 A1c is 5.8% today 11-20-2022 . Screening for malignant neoplasm of prostate 195145282 Z12.5 He agreed, 11-20-2022 Hyperlipidemia 14713404 E78.5 Low animal fat diet. Hearing loss 08055850 H9 1.92 [id number] Chadwick Luna MD [facility] [address] [place] [address] 01/26/2023 13:41:15 01/29/2023 15:14:59 Impacted cerumen 26875303 H61.20 Sensorineu ral hearing loss of bilateral ears 390209680 H90.3 follow-up after audiogram Chronic rhinitis 7777513 6 J31.0 [id number] Landen King MD [facility] (Adult Med) [address] [place] [address] [phone] 0 02/18/2023 11:18:46 02/19/2023 10:38:30 Bilateral hearing loss 82348443 H91.93 Wants up dated referring for follow up at same place, hearing aides are in the process of preparing. , also sees ENT dr[place] [facility] [place] Liver func tion tests outside reference range 167303863 R94.5 Will do the LFT and U/S of liver. Essential hypertension 81749178 I10 BP is 120/70 as 11-20-201 3. As , Bp is 122/78. Under the care of her cardiologi st Dr. Germain Devine Morbid obesity 944713361 E66.01 BMI is 50.8, he has been advised to watch his diabetic diet, low salt, low animal fat diet, and lose some weight. BMI is 51.2, 02-18-23, [id number] Chadwick Luna MD [facility] [address] [place] [address] 02/23/2023 09:07:17 02/25/2023 12:21:49 Sensorineural hearing loss of bilateral ears 445687794 H90.3 follow-up after audiogram follow-up for hearing aids return here if he has further difficulti es [id number] [facility] [address] [place] [address] [phone] 0 05/20/2023 09:12:54 05/21/2023 15:30:53 Chronic low back pain 485875819 M54.50 Discussed with patient, he agreed to try PT for 6 weeks. im=n addtion to x ray and med as ordered. Chronic neck pain 504873 5014 107 M54.2 Discussed with patient , he agreed for the PT, 6 weeks, x ray. and med as ordered. Morbid obesity 977343158 E66.01 BMI is 50.8, he has been advised to watch his diabetic diet, low salt, low animal fat diet, and lose some weight. BMI is 51.2, 02-18-23, As , BMI is 51.9 [id number] Landen King MD [facility] (Adult Med) [address] [place] [address] [phone] 0 07/21/2023 09:41:58 07/24/2023 14:59:50 Type 2 diabetes mellitus 96210459 E11.9 Will do A!c today . 5.8% Chronic neck pain 051933 2305 107 M54.2 Discussed with patient , he agreed for the PT, 6 weeks, x ray. and med as ordered. Essential hypertension 92369704 I10 BP is 120/70 as 11-20-201 3. As , Bp is 122/78. Under the care of her cardiologi st Dr. Germain Devine Gastroesop hageal reflux disease 096838951 K21.9 Stable. Hyperlipidemia 99975239 E78.5 Low animal fat diet. Chronic low back pain 27 8233630 M54.50 Discussed with patient, he agreed to try PT for 6 weeks. in addtion to x ray and med as ordered.[address] to get up and get out of bed. Degenerati ve joint disease involving multiple joints 514144171 M15.9 Stiff all over, hard to move . Onychomyco sis of toenails 710269244 B35.1 Dyslipidemia 814349032 E 78.5 Low animal fat diet. Morbid obesity 357937792 E66.01 BMI is 50.8, he has been advised to watch his diabetic diet, low salt, low animal fat diet, and lose some weight. BMI is 51.2, 02-18-23, As , BMI is 51.9. As 07-21-23, BMI down to 44.2. [id number] Landen King MD [facility] (Adult Med) [address] [place] [address] 40590-342 0 09/17/2023 08:59:57 09/22/2023 16:00:40 Spinal stenosis of lumbar region 37056777 M48.062 Will do PT and MRI. he agreed. Non-alcoho lic fatty liver 015117837 K76.0 Stable. Morbid obesity 198734404 E66.01 BMI is 50.8, he has been advised to watch his diabetic diet, low salt, low animal fat diet, and lose some weight. BMI is 51.2, 02-18-23, As , BMI is 51.9. As 07-21-23, BMI down to 44.2. BMI is down to 43.7 today 09-17-23. Hyperlipidemia 74369408 E78.5 Low animal fat diet. Type 2 julien betes mellitus 24668308 E11.9 Will do A!c today . 5.8% [id number] [facility] [address] [place] [address] 92394-849 0 10/16/2023 10:54:30 10/19/2023 14:42:40 Screening for malignant neoplasm of colon 811530316 Z12.11 Right abdomen pain after each BM, family histor of cancer. older brother has liver cancer. Erectile dysfunction 860 610450 F52.21 Essential hypertension 39958439 I10 BP is 120/70 as 11-20-201 3. As , Bp is 122/78. Under the care of her cardiologi st Dr. Germain Devine, BP re-check is 140/[address] King, today 10-16-23. Med refills , if has ant question, he can contact his cardiologi st, Hyperlipidemia 51788498 E78.5 Low animal fat diet. Chronic low back pain 27 4630638 M54.50 Discussed with patient, he agreed to try PT for 6 weeks. in addtion to x ray and med as ordered.[address] rd to get up and get out of bed. Degenerati ve joint disease involving multiple joints 667612082 M15.9 Stiff all over, hard to move . [id number] MD Roel Strange (Adult Med) [address] [place] [address] 86209-191 0 03/04/2024 10:45:16 03/04/2024 12:53:53 Essential hypertension 58744334 I10 Type 2 julien betes mellitus 00801351 E11.9 Spinal tera nosis of lumbar region 44055068 M48.061 Chronic low back pain 27 8778174 M54.50 Gastroesop hageal reflux disease without esophagitis 453030608 K21.9 Steatosis of liver 1007 K76.0 [id number] MD Roel Strange (Adult Med) [address] [place] [address] 01836-441 0 07/06/2024 09:03:24 07/06/2024 10:41:07 Essential hypertension 68377471 I10 Hyperlipidemia 22013826 E78.5 Gastroesop hageal reflux disease without esophagitis 782617509 K21.9 Pruritic disorder 346918 002 L29.9 Screening for malignant neoplasm of colon 899165867 Z12.11 Screening for malignant neoplasm of prostate 635974375 Z12.5 Fatigue 84269238 R53.83 Health Concerns Section Related Observation LastModified by Organization Detai ls LastModified Time None Recorded Concern Status LastModified by Organization Details LastModified Time None Recorded Advance Directives Directive N: Payers Encounter Date Sequence Insurance Name Policy Number Policy Sun Covered Member ID Sun Member ID Guarantor Name 07/21/2023 1 [place] Corey Sampson [id number] Corey Sampson 07/21/2023 2 [place]ARE OR MEDICARE REPLACEMENT PRIMARY) Corey Corralesdows [id number] Corey Corralesdows 09/17/2023 1 [place] Corey Sampson [id number] Corey Corralesdows 09/17/2023 2 [place] OR MEDICARE REPLACEMENT PRIMARY) Corey Corralesdows [id number] Corey Sampson 10/16/2023 1 [place] Corey Corralesdows [id number] Corey Sampson 10/16/2023 2 [place] OR MEDICARE REPLACEMENT PRIMARY) Corey Camilla [id number] Corey Sampson 03/04/2024 1 [place] Corey Corralesdows [id number] Corey Camilla 03/04/2024 2 [place] OR MEDICARE REPLACEMENT PRIMARY) Corey Camilla [id number] Corey Sampson 07/06/2024 1 [place] Corey Corralesdows [id number] Corey Sampson 07/06/2024 2 [place] OR MEDICARE REPLACEMENT PRIMARY) Corey Sampson [id number] Corey Sampson Notes Date Note Type Note Provider Name and Address Organization Details Recorded Time 07/21/2023 text/html OFFICE VISIT, JHONY CONSTANTINO. history of type 2 DM, mutiple joints stiffness, and morbid obesity. Med refills. Landen King MD Attn: [address] [place], [address], [facility] 07/21/2023 18:19:17 09/17/2023 text/html Office visit, NK DA. history of type 2 DM.obesity, chronic lower back pain, fatty liver, check up. no chest pain, no difficulty of breathing, no fever, ROS as noted in HPI., Landen King MD Attn: [address] [place], [address], [place] [facility] 09/18/2023 19:22:32 10/16/2023 text/html Office visit, J[facility]ON[facility] CONSTANTINO. C/C 1. Check up and med refills. 2. Lumbar spine stenosis on MRI, chronic lumbar radiculopathy. 3. Wants viagra. , His older brother of recurrent liver cancer, yesterday, he is going down there for . No chest pain. no shortness of breathing, . no fever. no other complaints. ROS as noted in HPI. Landen King MD Attn: [address] [place], [address], [facility] 10/16/2023 11:48:38 03/04/2024 text/html 73-year-old was seeing a previous provider looks like from the chart I can see that he has a history of hypertension and hyperlipidemia neuropathy low back pain mild sleep apnea spinal stenosis fatty liver 6 cm right midpole cyst prediabetes Dominguez's esophagus obesity heart cath 2021 clean coronary arteries Gallito Starkey MD Attn: [address] [place], [address], [facility] 03/20/2024 16:18:55 07/06/2024 text/html has some nonspec ific fatigue and some pruritus from time to time with nothing specific has been doing fine without any nausea vomiting or heartburn dyslipidemia taking his medication without side effects hypertension no headache or dizziness does have chronic back pain for which he sees interventional pain management and he is due for a colonoscopy Gallito Starkey MD Attn: [address] [place], [address], [facility] 07/09/2024 13:29:22
[2024-12-14 09:38] LABS: Basophils Absolute Auto 0.1 K/mm3 (0.0-0.1); Basophils Percent Auto 0.8 % (0.2-1.2); Eosinophils Absolute Auto 0.5 K/mm3 (0-0.3); Hematocrit 45.1 % (42.0-52.0); Hemoglobin 14.8 g/dL (14.0-18.0); Immature Granulocyte Absolute 0.01 K/mm3 (0.00-0.031); Immature Granulocyte Percent A 0.1 % (0-0.5); Lymphocytes Absolute Auto 1.95 K/mm3 (0.9-3.2); Lymphocytes Percent Auto 25.9 % (18.3-44.2); Mean Corpuscular HGB Conc 32.8 g/dl (32-36); Mean Corpuscular Hemoglobin 31.4 pg (26-34); Mean Corpuscular Volume 95.6 fl (80-100); Mean Platelet Volume 9.1 fl (7.4-10.4); Monocytes Absolute Auto 0.9 K/mm3 (0.1-0.6); Monocytes Percent Auto 11.7 % (2.6-8.5); Neutrophils Absolute Auto 4.2 K/mm3 (1.3-6.7); Neutrophils Percent Auto 55.5 % (45.5-73.1); Platelet Count Result 318 k/mm3 (150-375); Red Blood Count 4.72 M/mm3 (4.6-6.20); Red Cell Distribution Width 12.2 % (11.5-14.5); White Blood Count 7.5 K/mm3 (4.5-10.0)
[2024-12-14 09:53] LABS: Anion Gap 11 mmol/L (4-12); Blood Urea Nitrogen 19 mg/dL (9-20); Calcium 9.9 mg/dL (8.4-10.2); Carbon Dioxide 28 mmol/L (22-30); Chloride 99 mmol/L (98-107); Estimated Glomerular Filt Rate > 60; Glucose 103 mg/dL (65-110); Potassium 4.1 mmol/L (3.4-5.0); Sodium 138 mmol/L (137-145)
[2024-12-14 09:57] LABS: Prothrombin Time 13.9 Seconds (11.1-14.7)
[2024-12-14 09:58] LABS: Partial Thromboplastin Time 32.7 Seconds (22.3-36.8)
[2024-12-14 10:11] LABS: Add Urine Microscopic? NO; Appearance Urine Clear (Clear); Bilirubin Urine Negative (Negative); Blood Urine Negative (Negative); Color Urine Yellow (Yellow); Glucose Urine UA Negative (Negative); Ketones Urine Negative (Negative); Leukocyte Esterase Ur Negative LEU/UL (Negative); Nitrate Urine Negative (Negative); Protein Urine Negative (Negative); Specific Grav Ur 1.015 (1.001-1.035); Urobilinogen Urine 0.2 mg/dL (<2.0); pH Urine 7.5 (5.0-9.0)
== END 2024-12-14 08:27 | disposition home or self-care (01) ==
LOC: ANHSURGERY 08:32
PROVIDERS: PCP Internal Medicine; Visit Provider Neurological Surgery
DX: M48.062 Spinal stenosis, lumbar region with neurogenic claudication (principal); Z01.818 Encounter for other preprocedural examination
CPT/HCPCS: 36415; 80048; 81003; 85025; 85610; 85730

== ENCOUNTER 2024-12-22 13:57 | Inpatient (IN) | payer MEDICARE, MEDICAID, SELFPAY ==
[2024-10-03 13:20] VITALS: BMI 44.1
--- NOTE | 2024-10-03 13:34 | PC.NURSE ---
Addendum entered by Christina Jiang RN 12/09/24 10:00: Pt called, aware of new date and time of surgery, pt was admitted to [facility] in Oct, had testing all done per say and was cleared. Pt is aware of new date time and instructions and med list reconciled and pt to hold as below. Questions answered, pt to come in to get repeat testing next week. Report to the Outpatient Waiting Room, entrance under the green pavilion located off [facility], at time _0615am on date _12/21/24 . Planned Procedure Time: _08:15am .? Patients may have clear liquids (water, carbonated beverages, clear teas, apple juice) until 3 hours prior to surgery with a maximum of 20 ounces. - No food from midnight until time of surgery and no smoking. This includes no chewing gum, candy or mints. (0515am) Take only the following medications with a SIP of water on the morning of surgery: __Amlodipine, Metoprolol and Gabapentin. DO NOT STOP ANY OF YOUR OTHER PRESCRIPTION MEDICATIONS PRIOR TO SURGERY EXCEPT THE FOLLOWING Medications to discontinue per physician ___baby Aspirin to be held [address] Mckeon Date to take last dose 12/13/24 YANCY Original Note: Report to the Outpatient Waiting Room, entrance under the green pavilion located off [facility], at time _0600am on date _10/12/24 . Planned Procedure Time: _0730am .? Time changes happen often and if your time is changed the preop area will call you the afternoon before. - You and your visitor will be asked to self-screen and do not enter if you have any COVID symptoms. Please call surgeon if you need to reschedule. - A mask is optional within the hospital at this time. Patients may have clear liquids (water, carbonated beverages, clear teas, apple juice) until 3 hours prior to surgery with a maximum of 20 ounces. - No food from midnight until time of surgery and no smoking. This includes no chewing gum, candy or mints. (0430am) Take only the following medications with a SIP of water on the morning of surgery: __Amlodipine, Metoprolol and Gabapentin. DO NOT STOP ANY OF YOUR OTHER PRESCRIPTION MEDICATIONS PRIOR TO SURGERY EXCEPT THE FOLLOWING Medications to discontinue per physician ___None Date to take last dose None Please no make-up, nail sammarinese, hairspray, perfume, deodorant, or body powder the day of surgery.? No jewelry (including any body piercings) or valuables the day of surgery, leave them at home.? Please take a shower or bath the night before, or the morning of, surgery with an antibacterial soap.? Wear comfortable, loose fitting clothing. - Jewelry must be removed prior to entering the operating room.? Rings and piercings that are not removed may be cut off. - The hospital will not accept responsibility for valuables.? - Please leave all valuables, including medications, at home the day of surgery. If you are going home after surgery, a licensed driver medic must drive you home.? - NO public transportation without another adult if you receive anesthesia. - We recommend that an adult stay with you for 24 hours following discharge. - We also recommend that you do not drive, make important decision, drink alcoholic beverages, or take any drugs that were not prescribed by your health care provider for at least 24 hours after your discharge time. Follow any additional instructions given to you from your surgeon. Telephone instructions given to __Patient and asked if any additional questions and then verbalized understanding. Patient advised to call surgeon office or pre surgery nurse liaison [phone] if any additional questions.
[2024-12-21] VITALS (16 sets, daily range): BP systolic 91–132; BP diastolic 50–85; PULSE 66–85; RESP 14–20; TEMP 35.7–36.9; O2SAT 93–100; BMI 43.4
--- OUTSIDE RECORDS SUMMARY | 2024-12-21 00:37 | XMS_ITS | Data Portability ---
Author Organization [facility] BORISJillian Jonel Address [address] [place] [address] Care Team Providers Care Lump Inspector Name Role Phone LANDEN KING Primary Care Provider Assessment Encounter Date Assessment Date Assessment LastModified [...] for now he will continue current therapy Not available 03/20/2024 16:17:02 07/06/2024 07/06/2024 blood work. Colonoscopy. Continue current therapy. Follow up in 4 months. All diagnosis in the assessment and plan and they are management have been discussed see me in 4 months Not available 07/09/2024 13:27:25 Plan of Treatment Reminders Order Date Submit Date Provider Last Modified By Organization Details Last Modified Time Details Appointments ANY 15 2024 01:15P Vik Starkey MD Not available Not available Not available Lab PSA, total, serum or plasma 2023 024 [facility], [address] [facility] [address], [address], [place], [address], 07/07/2024 06:19:33 CBC w/ auto diff 2023 024 [facility], [address], [place], [address], 07/07/2024 06:19:33 CMP, serum or plasma 2023 024 [facility], [address], [address], [place], [address], 07/07/2024 06:19:31 lipid panel, serum 2023 024 [facility], [address], [address], [place], [address], 07/07/2024 06:19:30 TSH, ultra-s ensitiv e, serum 2023 024 [facility], [address], [address], [place], [address], 07/07/2024 06:19:32 T3, free, serum or plasma 2023 024 [facility], [address] [facility] [address] [facility], [address], [place], [address], 07/07/2024 06:19:34 unliste d lab - T4, free 2023 024 [facility], [address], [address], [place], [address], 07/07/2024 06:19:31 HbA1c (hemogl obin A1c), blood 2023 024 [facility], [address], [address], [place], [address], 03/05/2024 07:14:20 CBC w/ auto diff 2023 024 [facility], [address], [address], [place], [address], 03/05/2024 07:14:20 lipid panel, serum 2023 024 [facility], [address], [address], [place], [address], 03/05/2024 07:14:18 CMP, serum or plasma 2023 024 [facility], [address], [address], [place], [address], 03/05/2024 07:14:19 HbA1c (hemogl obin A1c), blood 2022 023 [facility], [address], [address], [place], [address], 08/12/2023 08:29:21 CMP, serum or plasma 2022 023 [facility], [address], [place], [address], 07/22/2023 06:18:16 albumin /creati nine, mass ratio, urine 2022 023 [facility], [address], [address], [place], [address], 07/22/2023 06:18:31 Referral pain managem ent referra l 2023 024 [email or web address] [facility], [address], [address], [place], [address], 06/18/2024 05:07:06 gastroe nterolo gist referra l - Please call patient for appoint ment, thanks! 2022 023 [email or web address] Andrae Mesa MD, [address], [address], [place], [address], 06/18/2024 05:07:[address] referra l [email or web address] [facility], [address] [place], [address], 06/18/2024 05:07:04 Procedures colonos copy screeni ng (PROC) 2023 024 [email or web address] [facility], [address], [place], [address], 10/25/2024 11:37:14 Surgeries None recorde d. Imaging MRI, lumbar spine, w/o contras t 2022 023 [facility] ([facility]), [address] [place], [address], 10/15/2023 15:09:15 Medication Orders omepraz ole 20 mg capsule ,delaye d release 2023 024 [email or web address] [id number], [address], [place], [address], 07/06/2024 12:19:08 gabapen tin 600 mg tablet 2023 024 [email or web address] [id number], [address], [place], [address], 03/20/2024 16:11:44 gabapen tin 600 mg tablet 2022 023 [email or web address] [id number], [address], [place], [address], 03/04/2024 12:52:42 Celebre x 100 mg capsule 2022 023 [email or web address] [id number], [address] , [place], [address], 03/04/2024 11:40:22 Calcium 600 + D(3) 600 mg-5 mcg (200 unit) capsule 2022 023 [id number], [address], [place], [address], 03/04/2024 11:40:35 sildena rigoberto 50 mg tablet 2022 024 [id number], [address], [place], [place], [id number], 03/04/2024 11:41:26 metopro lol tartrat e 25 mg tablet 2022 023 [id number] [address] [place], [address], 10/16/2023 11:48:36 losarta n 100 mg-hydr ochloro thiazid e 25 mg tablet 2022 023 [id number] [address] [place], [address], 10/16/2023 11:48:35 amlodip ine 10 mg tablet 2022 023 [id number], [address], [place], [address], 10/16/2023 11:48:36 gabapen tin 600 mg tablet 2022 023 [id number], [address], [place], [address], 07/21/2023 10:51:31 atorvas tatin 20 mg tablet 2022 023 [id number], [address], [place], [address], 07/21/2023 10:51:29 Difluca n 150 mg tablet 2022 023 [id number], [address] [place], [address], 03/04/2024 11:40:17 Calcium 600 + D(3) 600 mg-5 mcg (200 unit) capsule 2022 024 [id number], [address], [place], [address], 03/04/2024 11:41:56 Celebre x 100 mg capsule 2022 023 [email or web address] [facility] #[id number], [address], [place], [address], 03/04/2024 11:40:22 amlodip ine 10 mg tablet 2022 023 [id number], [address], [place], [address], 07/21/2023 10:51:30 losarta n 100 mg-hydr ochloro thiazid e 25 mg tablet 2022 023 [id number], [address] [place], [address], 07/21/2023 10:51:30 metopro lol tartrat e 25 mg tablet 2022 023 [id number], [address] [place], [address], 07/21/2023 10:51:31 Patient TargetsNo targets recorded. Patient Instructions Encounter Date Encounter Id Patient Instructions Last Modified By Organization Details Last Modified Time 07/21/2023 [id number] learning about t ype 2 diabetes [facility] Not available 07/21/2023 10:26:55 type 2 diabetes: care instructions [facility] Not available 07/21/2023 10:26:55 A healthy lifestyle: care instructions [facility] Not available 07/21/2023 10:51:23 gastroesophageal reflux disease (GERD): care instructions [facility] Not available 07/21/2023 10:26:55 high cholesterol : care instructions [facility] Not available 07/21/2023 10:26:55 osteoarthritis: care instructions [facility] Not available 07/21/2023 10:45:41 learning about h igh blood pressure [facility] Not available 07/21/2023 10:26:54 09/17/2023 [id number] lumbar spinal stenosis: care instructions [facility] Not available 09/17/2023 10:39:34 learning about t ype 2 diabetes si Not available 09/17/2023 10:39:34 type 2 diabetes: care instructions [facility] Not available 09/17/2023 10:39:34 A healthy lifestyle: care instructions [facility] Not available 09/17/2023 10:39:34 high cholesterol : care instructions [facility] Not available 09/17/2023 10:39:34 Nonalcoholic Fat ty Liver Disease (NAFLD): Care Instructions [facility] Not available 09/17/2023 10:39:34 10/16/2023 [id number] learning about h igh blood pressure [facility] Not available 10/16/2023 11:48:31 high cholesterol : care instructions [facility] Not available 10/16/2023 11:48:31 07/06/[id number] nandini Jaramillo omeprazole 20 mg 1 qd for GERD, follow up 4 months [email or web address] Not available 07/06/2024 10:40:43 Reason for Referral Physical Therapist Referral for Spinal stenosis of lumbar region Referring Physician: Landen King, Internal Medicine, Encounter Date: 09/17/2023 Managing Cognitive Engineer Referral for Screening for malignant neoplasm of [...] mg/dL 70-99 above high normal Not Available [facility] & [address], [address], 07/22/2023 06:18:16 07/21/20 23 07/21/2023 COMP. METAB OLIC PANEL (14) BUN 19 mg/dL 8-27 Not Available [facility] & [address], [address], 07/22/2023 06:18:16 07/21/20 23 07/21/2023 COMP. METAB OLIC PANEL (14) creatinine 1.01 mg/dL 0.76-1 .27 Not Available [address], [address], 07/22/2023 06:18:16 07/21/20 23 07/21/2023 COMP. METAB OLIC PANEL (14) eGFR 79 >=60 Units for eGFR value s are mL/mi n/1.7 3 The eGFR Calcu latio n has not been valid ated for patie nts under the age of 18. If test resul ts are displ ayed for a patie nt under the age of 18, disre zayda that value . Not Available [address], [address], 07/22/2023 06:18:16 07/21/20 23 07/21/2023 COMP. METAB OLIC PANEL (14) BUN/creatini ne ratio 18 10-24 Not Available [address], [address], 07/22/2023 06:18:16 07/21/20 23 07/21/2023 COMP. METAB OLIC PANEL (14) sodium 139 mmol/ L 134-14 4 Not Available [address], [address], 07/22/2023 06:18:16 07/21/20 23 07/21/2023 COMP. METAB OLIC PANEL (14) potassium 4.8 mmol/ L 3.5-5. 2 Not Available [address], [address], 07/22/2023 06:18:16 07/21/20 23 07/21/2023 COMP. METAB OLIC PANEL (14) chloride 101 mmol/ L 96-106 Not Available [address], [address], 07/22/2023 06:18:16 07/21/20 23 07/21/2023 COMP. METAB OLIC PANEL (14) carbon dioxide, total 29 mmol/ L 20-29 Not Available [address], [address], 07/22/2023 06:18:16 07/21/20 23 07/21/2023 COMP. METAB OLIC PANEL (14) calcium 10.4 mg/dL 8.6-10 .2 above high normal Not Available [address], [address], 07/22/2023 06:18:16 07/21/20 23 07/21/2023 COMP. METAB OLIC PANEL (14) protein, total 7.0 g/dL 6.0-8. 5 Not Available [address], [address], 07/22/2023 06:18:16 07/21/20 23 07/21/2023 COMP. METAB OLIC PANEL (14) albumin 4.5 g/dL 3.8-4. 8 Not Available [address], [address], 07/22/2023 06:18:16 07/21/20 23 07/21/2023 COMP. METAB OLIC PANEL (14) globulin, total 2.5 g/dL 1.5-4. 5 Not Available [address], [address], 07/22/2023 06:18:16 07/21/20 23 07/21/2023 COMP. METAB OLIC PANEL (14) A/G ratio 2.0 1.2-2. 2 Not Available [address], [address], 07/22/2023 06:18:16 07/21/20 23 07/21/2023 COMP. METAB OLIC PANEL (14) bilirubin, total 0.6 mg/dL 0.0-1. 2 Not Available [address], [address], 07/22/2023 06:18:16 07/21/20 23 07/21/2023 COMP. METAB OLIC PANEL (14) alkaline phosphatase 46 IU/L 44-121 Not Available [address], [address], 07/22/2023 06:18:16 07/21/20 23 07/21/2023 COMP. METAB OLIC PANEL (14) AST (SGOT) 32 IU/L 0-40 Not Available [address], [address], 07/22/2023 06:18:16 07/21/20 23 07/21/2023 COMP. METAB OLIC PANEL (14) ALT (SGPT) 48 IU/L 0-44 above high normal Not Available [address], [address], 07/22/2023 06:18:16 07/21/20 23 07/22/2023 ALBUM IN/CR EATIN INE RATIO ,URIN E creatinine, urine 70.2 mg/dL notest ab. Not Available [address], [address], 07/22/2023 06:18:31 09/19/20 23 07/22/2023 ALBUM IN/CR EATIN INE RATIO ,URIN E albumin, urine 3.5 ug/mL notest ab. Not Available [address], [address], 07/22/2023 06:18:31 07/21/20 23 07/22/2023 ALBUM IN/CR EATIN INE RATIO ,URIN E alb/creat ratio 5 mg/g_ creat 0-29 Annel l: 0 - 29 Moder ately incre ased: 30 - 300 Sever shilo incre ased: >300 Not Available [address], [address], 07/22/2023 06:18:31 07/21/20 23 07/22/2023 DIABE LUIS DANIEL PATIE NT EDUCA TION pdf Not applic able Not Available [address], [address], 07/22/2023 06:18:32 07/21/20 23 07/22/2023 DIABE LUIS DANIEL PATIE NT EDUCA TION pdf . Not Available [address], [address], 07/22/2023 06:18:17 08/11/2008/12/2023 HCV ANTIB EMMETT hep [...] e HCV infec tion. Not Available [facility]) [address] [facility] [address], [place], [address], 08/12/2023 08:29:20 08/11/2008/12/2023 HEP B SURFA CE AB, QUAL hep B surface Ab, qual Non Reacti ve Non React kelechi: Incon siste nt with immun ity, less than 10 mIU/m L React kelechi: Consi stent with immun ity, great er than 9.9 mIU/m L Not Available [facility] ([facility]) [address] [place], [address], 08/12/2023 08:29:22 08/11/2008/12/2023 HBSAG SCREE N HBsAg screen Negati ve negati ve Not Available [facility] ([facility]) [address] [place], [address], 08/12/2023 08:29:23 08/11/2008/12/2023 HEMOG LOBIN A1C hemoglobin A1C 6.0 % 4.8-5. 6 above high normal Predi abete s: 5.7 - 6.4 Diabe luis daniel: >6.4 Glyce tameka contr ol for adult s with diabe luis daniel: <7.0 Not Available [facility] ([facility]) [address] [facility], [place], [address], 08/12/2023 08:29:21 03/04/20 24 03/05/2024 LIPID PANEL cholesterol, total 138 mg/dL 100-19 9 Not Available [facility] ([facility]) [address] [place], [address], 03/05/2024 07:14:18 03/04/20 24 03/05/2024 LIPID PANEL triglyceride s 105 mg/dL 0-149 Not Available [facility]) [address] [place], [address], 03/05/2024 07:14:18 03/04/20 24 03/05/2024 LIPID PANEL HDL cholesterol 45 mg/dL >39 Not Available [facility]) [address] [place], [address], 03/05/2024 07:14:18 03/04/20 24 03/05/2024 LIPID PANEL VLDL cholesterol angela 19 mg/dL 5-40 Not Available [facility]) [address] [place], [address], 03/05/2024 07:14:18 03/04/20 24 03/05/2024 LIPID PANEL LDL chol calc ([facility]) 74 mg/dL 0-99 Not Available [facility]) [address] [place], [address], 03/05/2024 07:14:18 03/04/20 24 03/05/2024 COMP. METAB OLIC PANEL (14) glucose 97 mg/dL 70-99 Not Available [facility] ([facility]) [address] [facility], [place], [address], 03/05/2024 07:14:19 03/04/20 24 03/05/2024 COMP. METAB OLIC PANEL (14) BUN 15 mg/dL 8-27 Not Available [facility] ([facility]) [address] [place], [address], 03/05/2024 07:14:19 03/04/20 24 03/05/2024 COMP. METAB OLIC PANEL (14) creatinine 1.14 mg/dL 0.76-1 .27 Not Available [facility] ([facility]) [address] [place], [address], 03/05/2024 07:14:19 03/04/20 24 03/05/2024 COMP. METAB OLIC PANEL (14) eGFR 68 mL/mi n/1.7 3 >59 Not Available [facility] ([facility]) [address] [place], [address], 03/05/2024 07:14:19 03/04/20 24 03/05/2024 COMP. METAB OLIC PANEL (14) BUN/creatini ne ratio 13 10-24 Not Available [facility] ([facility]) [address], [place], [address], 03/05/2024 07:14:19 03/04/20 24 03/05/2024 COMP. METAB OLIC PANEL (14) sodium 138 mmol/ L 134-14 4 Not Available [facility] ([facility]) [address], [place], [address], 03/05/2024 07:14:19 03/04/20 24 03/05/2024 COMP. METAB OLIC PANEL (14) potassium 4.6 mmol/ L 3.5-5. 2 Not Available [facility] ([facility]) [address] [place], [address], 03/05/2024 07:14:19 03/04/20 24 03/05/2024 COMP. METAB OLIC PANEL (14) chloride 100 mmol/ L 96-106 Not Available [facility] ([facility]) [address], [place], [address], 03/05/2024 07:14:19 03/04/20 24 03/05/2024 COMP. METAB OLIC PANEL (14) carbon dioxide, total 24 mmol/ L 20-29 Not Available [facility] ([facility]) [address] [facility] [place], [address], 03/05/2024 07:14:19 03/04/20 24 03/05/2024 COMP. METAB OLIC PANEL (14) calcium 10.0 mg/dL 8.6-10 .2 Not Available [facility] ([facility]) [address] [facility] [place], [address], 03/05/2024 07:14:19 03/04/20 24 03/05/2024 COMP. METAB OLIC PANEL (14) protein, total 6.6 g/dL 6.0-8. 5 Not Available [facility] ([facility]) [address] [facility] [place], [address], 03/05/2024 07:14:19 03/04/20 24 03/05/2024 COMP. METAB OLIC PANEL (14) albumin 4.4 g/dL 3.8-4. 8 Not Available [facility] ([facility]) [address] [facility], [place], [address], 03/05/2024 07:14:19 03/04/20 24 03/05/2024 COMP. METAB OLIC PANEL (14) globulin, total 2.2 g/dL 1.5-4. 5 Not Available [facility] ([facility]) [address] [facility], [place], [address], 03/05/2024 07:14:19 03/04/20 24 03/05/2024 COMP. METAB OLIC PANEL (14) A/G ratio 2.0 1.2-2. 2 Not Available [facility] ([facility]) [address] [facility], [place], [address], 03/05/2024 07:14:19 03/04/20 24 03/05/2024 COMP. METAB OLIC PANEL (14) bilirubin, total 0.6 mg/dL 0.0-1. 2 Not Available [facility] ([facility]) [address] [facility], [place], [address], 03/05/2024 07:14:19 03/04/20 24 03/05/2024 COMP. METAB OLIC PANEL (14) alkaline phosphatase 58 IU/L 44-121 Not Available [facility]) [address] [facility], [place], [address], 03/05/2024 07:14:19 03/04/20 24 03/05/2024 COMP. METAB OLIC PANEL (14) AST (SGOT) 30 IU/L 0-40 Not Available [facility] ([facility]) [address] [facility], [place], [address], 03/05/2024 07:14:19 03/04/20 24 03/05/2024 COMP. METAB OLIC PANEL (14) ALT (SGPT) 42 IU/L 0-44 Not Available [facility] ([facility]) [address] [facility], [place], [address], 03/05/2024 07:14:19 03/04/20 24 03/05/2024 HEMOG LOBIN A1C hemoglobin A1C 6.2 % 4.8-5. 6 above high normal Predi abete s: 5.7 - 6.4 Diabe luis daniel: >6.4 Glyce tameka contr ol for adult s with diabe luis daniel: <7.0 Not Available [facility] ([facility]) [address] [facility], [place], [address], 03/05/2024 07:14:19 03/04/20 24 03/05/2024 CBC WITH DIFFE RENTI AL/PL ATELE T WBC 6.8 x10e3 /uL 3.4-10 .8 Not Available [facility] ([facility]) [address] [facility], [place], [address], 03/05/2024 07:14:20 03/04/20 24 03/05/2024 CBC WITH DIFFE RENTI AL/PL ATELE T RBC 4.66 x10e6 /uL 4.14-5 .80 Not Available [facility] ([facility]) [address] [facility], [place], [address], 03/05/2024 07:14:20 03/04/20 24 03/05/2024 CBC WITH DIFFE RENTI AL/PL ATELE T hemoglobin 14.2 g/dL 13.0-1 7.7 Not Available [facility] ([facility]) [address] [place], [address], 03/05/2024 07:14:20 03/04/20 24 03/05/2024 CBC WITH DIFFE RENTI AL/PL ATELE T hematocrit 42.7 % 37.5-5 1.0 Not Available [facility] ([facility]) [address] [facility], [place], [address], 03/05/2024 07:14:20 03/04/20 24 03/05/2024 CBC WITH DIFFE RENTI AL/PL ATELE T MCV 92 fL 79-97 Not Available [facility] ([facility]) [address] [facility], [place], [address], 03/05/2024 07:14:20 03/04/20 24 03/05/2024 CBC WITH DIFFE RENTI AL/PL ATELE T MCH 30.5 pg 26.6-3 3.0 Not Available [facility] ([facility]) [address] [facility], [place], [address], 03/05/2024 07:14:20 03/04/20 24 03/05/2024 CBC WITH DIFFE RENTI AL/PL ATELE T MCHC 33.3 g/dL 31.5-3 5.7 Not Available [facility] ([facility]) [address] [facility], [place], [address], 03/05/2024 07:14:20 03/04/20 24 03/05/2024 CBC WITH DIFFE RENTI AL/PL ATELE T RDW 12.3 % 11.6-1 5.4 Not Available [facility] ([facility]) [address] [facility], [place], [address], 03/05/2024 07:14:20 03/04/20 24 03/05/2024 CBC WITH DIFFE RENTI AL/PL ATELE T platelets 275 x10e3 /uL 150-45 0 Not Available [facility] ([facility]) [address] [facility], [place], [address], 03/05/2024 07:14:20 03/04/20 24 03/05/2024 CBC WITH DIFFE RENTI AL/PL ATELE T neutrophils 51 % notest ab. Not Available [facility] ([facility]) [address] [facility], [place], [address], 03/05/2024 07:14:20 03/04/20 24 03/05/2024 CBC WITH DIFFE RENTI AL/PL ATELE T lymphs 29 % notest ab. Not Available [facility] ([facility]) [address] [facility], [place], [address], 03/05/2024 07:14:20 03/04/20 24 03/05/2024 CBC WITH DIFFE RENTI AL/PL ATELE T monocytes 12 % notest ab. Not Available [facility] ([facility]) [address] [facility], [place], [address], 03/05/2024 07:14:20 03/04/20 24 03/05/2024 CBC WITH DIFFE RENTI AL/PL ATELE T eos 7 % notest ab. Not Available [facility] ([facility]) [address] [facility], [place], [address], 03/05/2024 07:14:20 03/04/20 24 03/05/2024 CBC WITH DIFFE RENTI AL/PL ATELE T basos 1 % notest ab. Not Available [facility] ([facility]) [address] [facility], [place], [address], 03/05/2024 07:14:20 03/04/20 24 03/05/2024 CBC WITH DIFFE RENTI AL/PL ATELE T neutrophils (absolute) 3.6 x10e3 /uL 1.4-7. 0 Not Available [facility] ([facility]) [address] [place], [address], 03/05/2024 07:14:20 03/04/20 24 03/05/2024 CBC WITH DIFFE RENTI AL/PL ATELE T lymphs (absolute) 2.0 x10e3 /uL 0.7-3. 1 Not Available [facility] ([facility]) [address] [place], [address], 03/05/2024 07:14:20 03/04/20 24 03/05/2024 CBC WITH DIFFE RENTI AL/PL ATELE T monocytes(ab solute) 0.8 x10e3 /uL 0.1-0. 9 Not Available [facility] ([facility]) [address] [facility], [place], [address], 03/05/2024 07:14:20 03/04/20 24 03/05/2024 CBC WITH DIFFE RENTI AL/PL ATELE T eos (absolute) 0.5 x10e3 /uL 0.0-0. 4 above high normal Not Available [facility] ([facility]) [address] [facility], [place], [address], 03/05/2024 07:14:20 03/04/20 24 03/05/2024 CBC WITH DIFFE RENTI AL/PL ATELE T baso (absolute) 0.0 x10e3 /uL 0.0-0. 2 Not Available [facility] ([facility]) [address] [facility], [place], [address], 03/05/2024 07:14:20 03/04/20 24 03/05/2024 CBC WITH DIFFE RENTI AL/PL ATELE T immature granulocytes 0 % notest ab. Not Available [facility] ([facility]) [address] [facility], [place], [address], 03/05/2024 07:14:20 03/04/20 24 03/05/2024 CBC WITH DIFFE RENTI AL/PL ATELE T immature grans (abs) 0.0 x10e3 /uL 0.0-0. 1 Not Available [facility] ([facility]) [address] [place], [address], 03/05/2024 07:14:20 07/06/20 24 07/07/2024 LIPID PANEL cholesterol, total 205 mg/dL 100-19 9 above high normal Not Available [facility] ([facility]) [address] [place], [address], 07/07/2024 06:19:30 07/06/20 24 07/07/2024 LIPID PANEL triglyceride s 155 mg/dL 0-149 above high normal Not Available [facility] ([facility]) [address] [place], [address], 07/07/2024 06:19:30 07/06/20 24 07/07/2024 LIPID PANEL HDL cholesterol 44 mg/dL >39 Not Available [facility] ([facility]) [address] [place], [address], 07/07/2024 06:19:30 07/06/20 24 07/07/2024 LIPID PANEL VLDL cholesterol angela 28 mg/dL 5-40 Not Available [facility] ([facility]) [address] [place], [address], 07/07/2024 06:19:30 07/06/20 24 07/07/2024 LIPID PANEL LDL chol calc ([facility]) 133 mg/dL 0-99 above high normal Not Available [facility] ([facility]) [address] [place], [address], 07/07/2024 06:19:30 07/06/20 24 07/07/2024 T4, FREE T4,free(dire ct) 0.99 NG/dL 0.82-1 .77 Not Available [facility] ([facility]) [address] [place], [address], 07/07/2024 06:19:31 07/06/20 24 07/07/2024 COMP. METAB OLIC PANEL (14) glucose 114 mg/dL 70-99 above high normal Not Available [facility] ([facility]) [address] [place], [address], 07/07/2024 06:19:31 07/06/20 24 07/07/2024 COMP. METAB OLIC PANEL (14) BUN 14 mg/dL 8-27 Not Available [facility] ([facility]) [address] [facility] [place], [address], 07/07/2024 06:19:31 07/06/20 24 07/07/2024 COMP. METAB OLIC PANEL (14) creatinine 1.19 mg/dL 0.76-1 .27 Not Available [facility] ([facility] [facility] [address] [place], [address], 07/07/2024 06:19:31 07/06/20 24 07/07/2024 COMP. METAB OLIC PANEL (14) eGFR 64 mL/mi n/1.7 3 >59 Not Available [facility] ([facility]) [address] [place], [address], 07/07/2024 06:19:31 07/06/20 24 07/07/2024 COMP. METAB OLIC PANEL (14) BUN/creatini ne ratio 12 10-24 Not Available [facility] ([facility]) [address] [place], [address], 07/07/2024 06:19:31 07/06/20 24 07/07/2024 COMP. METAB OLIC PANEL (14) sodium 139 mmol/ L 134-14 4 Not Available [facility] ([facility]) [address] [place], [address], 07/07/2024 06:19:31 07/06/20 24 07/07/2024 COMP. METAB OLIC PANEL (14) potassium 4.6 mmol/ L 3.5-5. 2 Not Available [facility] ([facility]) [address] [place], [address], 07/07/2024 06:19:31 07/06/20 24 07/07/2024 COMP. METAB OLIC PANEL (14) chloride 99 mmol/ L 96-106 Not Available [facility] ([facility]) [address] [place], [address], 07/07/2024 06:19:31 07/06/20 24 07/07/2024 COMP. METAB OLIC PANEL (14) carbon dioxide, total 24 mmol/ L 20-29 Not Available [facility] ([facility] [facility]) [address] [place], [address], 07/07/2024 06:19:31 07/06/20 24 07/07/2024 COMP. METAB OLIC PANEL (14) calcium 10.2 mg/dL 8.6-10 .2 Not Available [facility] ([facility]) [address] [place], [address], 07/07/2024 06:19:31 07/06/20 24 07/07/2024 COMP. METAB OLIC PANEL (14) protein, total 7.2 g/dL 6.0-8. 5 Not Available [facility] ([facility]) [address] [place], [address], 07/07/2024 06:19:31 07/06/20 24 07/07/2024 COMP. METAB OLIC PANEL (14) albumin 4.6 g/dL 3.8-4. 8 Not Available [facility] ([facility]) [address] [place], [address], 07/07/2024 06:19:31 07/06/20 24 07/07/2024 COMP. METAB OLIC PANEL (14) globulin, total 2.6 g/dL 1.5-4. 5 Not Available [facility] ([facility]) [address] [place], [address], 07/07/2024 06:19:31 07/06/20 24 07/07/2024 COMP. METAB OLIC PANEL (14) bilirubin, total 0.6 mg/dL 0.0-1. 2 Not Available [facility] ([facility] [facility]) [address] [place], [address], 07/07/2024 06:19:31 07/06/20 24 07/07/2024 COMP. METAB OLIC PANEL (14) alkaline phosphatase 49 IU/L 44-121 Not Available [facility] ([facility]) [address], [place], [address], 07/07/2024 06:19:31 07/06/20 24 07/07/2024 COMP. METAB OLIC PANEL (14) AST (SGOT) 34 IU/L 0-40 Not Available [facility] ([facility]) [address], [place], [address], 07/07/2024 06:19:31 07/06/20 24 07/07/2024 COMP. METAB OLIC PANEL (14) ALT (SGPT) 45 IU/L 0-44 above high normal Not Available [facility] ([facility]) [address] [facility], [place], [address], 07/07/2024 06:19:31 07/06/20 24 07/07/2024 TSH TSH 1.550 uIU/m L 0.450- 4.500 Not Available [facility] ([facility]) [address] [facility], [place], [address], 07/07/2024 06:19:32 07/06/20 24 07/06/2024 CBC WITH DIFFE RENTI AL/PL ATELE T WBC 6.5 x10e3 /uL 3.4-10 .8 Not Available [facility] ([facility]) [address] [facility], [place], [address], 07/07/2024 06:19:33 07/06/20 24 07/06/2024 CBC WITH DIFFE RENTI AL/PL ATELE T RBC 4.93 x10e6 /uL 4.14-5 .80 Not Available [facility] ([facility]) [address] [facility], [place], [address], 07/07/2024 06:19:33 07/06/20 24 07/06/2024 CBC WITH DIFFE RENTI AL/PL ATELE T hemoglobin 15.5 g/dL 13.0-1 7.7 Not Available [facility] ([facility]) [address] [facility], [place], [address], 07/07/2024 06:19:33 07/06/2007/06/2024 CBC WITH DIFFE RENTI AL/PL ATELE T hematocrit 47.3 % 37.5-5 1.0 Not Available [facility] ([facility]) [address] [facility], [place], [address], 07/07/2024 06:19:33 07/06/2007/06/2024 CBC WITH DIFFE RENTI AL/PL ATELE T MCV 96 fL 79-97 Not Available [facility] ([facility]) [address] [facility], [place], [address], 07/07/2024 06:19:33 07/06/2007/06/2024 CBC WITH DIFFE RENTI AL/PL ATELE T MCH 31.4 pg 26.6-3 3.0 Not Available [facility] ([facility]) [address] [place], [address], 07/07/2024 06:19:33 07/06/2007/06/2024 CBC WITH DIFFE RENTI AL/PL ATELE T MCHC 32.8 g/dL 31.5-3 5.7 Not Available [facility] ([facility]) [address] [place], [address], 07/07/2024 06:19:33 07/06/2007/06/2024 CBC WITH DIFFE RENTI AL/PL ATELE T RDW 12.0 % 11.6-1 5.4 Not Available [facility] ([facility]) [address] [place], [address], 07/07/2024 06:19:33 07/06/2007/06/2024 CBC WITH DIFFE RENTI AL/PL ATELE T platelets 285 x10e3 /uL 150-45 0 Not Available [facility] ([facility]) [address] [facility], [place], [address], 07/07/2024 06:19:33 07/06/20 24 07/06/2024 CBC WITH DIFFE RENTI AL/PL ATELE T neutrophils 53 % notest ab. Not Available [facility] ([facility]) [address] [facility], [place], [address], 07/07/2024 06:19:33 07/06/20 24 07/06/2024 CBC WITH DIFFE RENTI AL/PL ATELE T lymphs 27 % notest ab. Not Available [facility] ([facility]) [address] [facility], [place], [address], 07/07/2024 06:19:33 07/06/20 24 07/06/2024 CBC WITH DIFFE RENTI AL/PL ATELE T monocytes 13 % notest ab. Not Available [facility] ([facility]) [address] [facility], [place], [address], 07/07/2024 06:19:33 07/06/20 24 07/06/2024 CBC WITH DIFFE RENTI AL/PL ATELE T eos 6 % notest ab. Not Available [facility] ([facility]) [address] [facility], [place], [address], 07/07/2024 06:19:33 07/06/20 24 07/06/2024 CBC WITH DIFFE RENTI AL/PL ATELE T basos 1 % notest ab. Not Available [facility] ([facility]) [address] [facility], [place], [address], 07/07/2024 06:19:33 07/06/20 24 07/06/2024 CBC WITH DIFFE RENTI AL/PL ATELE T neutrophils (absolute) 3.5 x10e3 /uL 1.4-7. 0 Not Available [facility] ([facility]) [address] [facility], [place], [address], 07/07/2024 06:19:33 07/06/20 24 07/06/2024 CBC WITH DIFFE RENTI AL/PL ATELE T lymphs (absolute) 1.7 x10e3 /uL 0.7-3. 1 Not Available [facility] ([facility]) [address] [facility], [place], [address], 07/07/2024 06:19:33 07/06/20 24 07/06/2024 CBC WITH DIFFE RENTI AL/PL ATELE T monocytes(ab solute) 0.8 x10e3 /uL 0.1-0. 9 Not Available [facility] ([facility]) [address] [facility], [place], [address], 07/07/2024 06:19:33 07/06/20 24 07/06/2024 CBC WITH DIFFE RENTI AL/PL ATELE T eos (absolute) 0.4 x10e3 /uL 0.0-0. 4 Not Available [facility] ([facility]) [address] [facility], [place], [address], 07/07/2024 06:19:33 07/06/20 24 07/06/2024 CBC WITH DIFFE RENTI AL/PL ATELE T baso (absolute) 0.1 x10e3 /uL 0.0-0. 2 Not Available [facility] ([facility]) [address] [facility], [place], [address], 07/07/2024 06:19:33 07/06/2007/06/2024 CBC WITH DIFFE RENTI AL/PL ATELE T immature granulocytes 0 % notest ab. Not Available [facility] ([facility]) [address] [facility], [place], [address], 07/07/2024 06:19:33 07/06/20 24 07/06/2024 CBC WITH DIFFE RENTI AL/PL ATELE T immature grans (abs) 0.0 x10e3 /uL 0.0-0. 1 Not Available [facility] ([facility]) [address] [facility], [place], [address], 07/07/2024 06:19:33 07/06/20 24 07/07/2024 PROST ATE-S [...] of ba verde se. Not Available [facility] ([facility]) [address] [facility], [place], [address], 07/07/2024 06:19:33 07/06/20 24 07/07/2024 TRIIO DOTHY ROSARIO E (T3), FREE triiodothyro nine (T3), free 3.5 pg/mL 2.0-4. 4 Not Available [facility] ([facility]) [address] [facility], [place], [address], 07/07/2024 06:19:34 09/11/20 23 09/11/2023 US, abdom en No observ ation record ed. [email or web address] [address] [facility], [place], [address], 09/15/2023 16:40:51 10/15/20 23 10/15/2023 MRI, lumba r spine , w/o contr ast No observ ation record ed. [facility] [address] [place], [address], 10/16/2023 11:27:02 08/11/20 24 08/11/2024 CT, abdom en + pelvi s, w/o contr ast No observ ation record ed. [facility] [address] [place], [address], 08/15/2024 10:22:34 10/05/20 24 10/05/2024 MRI, lumba r spine , w/o contr ast No observ ation record ed. [facility] [id number], [place], [address], 10/06/2024 09:49:47 10/18/20 24 10/18/2024 XR, chest , 2 view No observ ation record ed. [facility] [address] [place], [address], 10/31/2024 14:42:29 10/19/20 24 10/19/2024 NM, myoca rdial perfu romi scan No observ ation record ed. [facility] [address] [place], [address], 10/31/2024 14:42:43 Result Notes None recorded. Problems Name Problem SNOMED Code Status Onset Date Resolution Date Notes Provider Name and Address Organization Details Recorded Time Lipoma of skin 463872237 Active 2017 Not Available [facility] 3 03:51:03 Screenin g for malignan t neoplasm of prostate Active 2017 Not Available [facility] 3 03:51:04 Bladder muscle dysfunct ion - overacti ve Active 2017 Not Available [facility] 3 03:51:03 Hepatiti s C screenin g Completed 201703/17/2018 Jerry Fuentes PA-C Attn: [place], [address] , [place] [facility] 8 10:56:01 Carpal tunnel syndrome of right wrist 85682539164 9108 Active 2017 repaired February 16, 2018. Dr. Arora Not Available [facility] 3 03:51:03 Depressi ve disorder 32481159 Active 2017 Not Available [facility] 3 03:51:03 Low back pain 302141220 Active 2017 Not Available [facility] 3 03:51:03 Anxiety 73198151 Active 2017 Not Available [facility] 3 03:51:04 Constipa tion 54397687 Active 2019 Not Available [facility] 3 03:51:03 Chest pain 83235704 Active 2019 Not Available [facility] 3 03:51:03 High hemoglob in A1c level 889484627 Active 2019 Not Available [facility] 3 03:51:04 Costal chondrit is 65863261 Active 2019 Not Available [facility] 3 03:51:04 Chronic idiopath ic constipa tion 09794733 Active 2021 Not Available [facility] 3 03:51:04 Venereal disease screenin g Active 2021 Not Available [facility] 3 03:51:03 Right flank pain 167956697 Active 2021 Not Available [facility] 3 03:51:03 Dysuria 13431632 Active 2021 Not Available [facility] 3 03:51:04 Trigger thumb of right hand 75011160157 9105 Active 2021 Not Available [facility] 3 03:51:03 Bilatera l hearing loss 91267564 Active 2021 Not Available [facility] 3 03:51:04 Administ ration of tetanus vaccine Active 2021 Not Available [facility] 3 03:51:03 Administ ration of pneumoco ccal vaccine Active 2021 Not Available [facility] 3 03:51:03 Cough 62685191 Active 2021 Not Available [facility] 3 03:51:04 Screenin g for malignan t neoplasm of colon Active 2021 Not Available [facility] 3 03:51:03 Spinal stenosis of lumbar region 46884726 Active 2023 Gallito Starkey MD Attn: Accounting ,[address] [place], [address] , [place] [facility] 4 16:17:03 Chronic low back pain 994627107 Active 2023 Gallito Starkey MD Attn: Accounting ,[address] [place], [address] , [place] [facility] 4 16:17:07 Gastroes ophageal reflux disease without esophagi tis 123296923 Active 2023 Gallito Starkey MD Attn: Accounting ,[address] [place], [address] , [place] [facility] 4 16:17:25 Steatosi s of liver 684117465 Active 2023 Gallito Starkey MD Attn: Accounting ,[address] [place], [address] , [place] [facility] 4 16:17:39 Essentia l hyperten romi 01389606 Active Not Available [facility] 3 03:51:04 Hyperlip idemia 26390884 Active Not Available [facility] 3 03:51:04 Contact dermatit is 33235008 Active Not Available [facility] 3 03:51:04 Sinusiti s 83154893 Active Not Available [facility] 3 03:51:03 Type 2 diabetes mellitus 74537520 Active Not Available [facility] 3 03:51:04 Gastroes ophageal reflux disease 212666686 Active Not Available [facility] 3 03:51:03 Dominguez' s esophagu s 175287362 Active Not Available [facility] 3 03:51:03 Impotenc e Active Not Available [facility] 3 03:51:03 Snoring 58467667 Active Not Available [facility] 3 03:51:04 Follicul itis 46171953 Active Not Available [facility] 3 03:51:03 Tinea corporis 77441985 Active Not Available [facility] 3 03:51:04 Onychomy cosis 620120358 Active Not Available [facility] 3 03:51:04 Eczema 57403024 Active Not Available [facility] 3 03:51:04 Shoulder pain 70511670 Active Not Available [facility] 3 03:51:04 Chronic neck pain 79706954377 07 Active Not Available [facility] 3 03:51:03 Notes:screws in left ankle. Problem Notes None recorded. Procedures Surgical History Date Name Laterality Status Provider Name and Address Organization Details Recorded Time 3 Cerumen removal without microscope completed Shilpi Stock [place] - [facility] 01/21/2023 14:50:45 Imaging Results Imaging Date Name Status LastModified by Organ [facility] Details LastModified Time 09/11/2023 US, abdomen completed [facility] [address] [place], [address], 09/15/2023 16:40:51 10/15/2023 MRI, lumbar spine, w/o contrast completed [facility] [address] [place], [address], 10/16/2023 11:27:02 08/11/2024 CT, abdomen + pelvis, w/o contrast completed [facility] [address] [place], [address], 08/15/2024 10:22:34 10/05/2024 MRI, lumbar spine, w/o contrast completed [address] [place] [address], [address], 10/06/2024 09:49:47 10/18/2024 XR, chest, [address] [facility] [address] [place], [address], 10/31/2024 14:42:29 10/19/2024 NM, myocardial perfusion scan completed [facility] [address] [place], [address], 10/31/2024 14:42:43 Procedure Notes None recorded. Medical [...] Updated DateTime 3 170.18 cm 44.2 kg/m2 934883. 05 g 63 /min 98 % 98 % 132 mm[Hg] 77 mm[Hg] Keerthi Mak [place] [facility] 3 09:55:57 Date Recorded Body height Body mass index (BMI) Body weight Heart rate Oxygen saturation Oxygen saturation in Arterial blood by Pulse oximetry Systolic blood pressure Diastolic blood pressure Provider Name and Address Organization Details Last Updated DateTime 3 170.18 cm 43.7 kg/m2 383626. 27 g 66 /min 98 % 98 % 142 mm[Hg] 76 mm[Hg] Keerthi Mak MA [facility] 3 10:07:04 Date Recorded Body height Body mass index (BMI) Body weight Heart rate Oxygen saturation Oxygen saturation in Arterial blood by Pulse oximetry Systolic blood pressure Diastolic blood pressure Provider Name and Address Organization Details Last Updated DateTime 3 170.18 cm 43.1 kg/m2 959552. 9 g 59 /min 98 % 98 % 148 mm[Hg] 82 mm[Hg] Keerthi Mak MA [facility] 3 11:03:00 Date Recorded Body height Body mass index (BMI) Body weight Heart rate Oxygen saturation Oxygen saturation in Arterial blood by Pulse oximetry Systolic blood pressure Diastolic blood pressure Provider Name and Address Organization Details Last Updated DateTime 4 170.18 cm 42.6 kg/m2 741910. 41 g 63 /min 97 % 97 % 124 mm[Hg] 82 mm[Hg] Guillermina Angelo MA [facility] 4 11:34:19 Date Recorded Body height Body mass index (BMI) Body weight Heart rate Oxygen saturation Oxygen saturation in Arterial blood by Pulse oximetry Systolic blood pressure Diastolic blood pressure Provider Name and Address Organization Details Last Updated DateTime 4 170.18 cm 43.9 kg/m2 821509. 3 g 64 /min 96 % 96 % 138 mm[Hg] 68 mm[Hg] Tawanna Bender MA [facility] 4 09:31:46 Social History Question Answer Notes LastModified by Organizat ion Details LastModified Time Tobacco Smoking Status Never Smoker Almas Rojas MA null, [facility] 02/02/2015 11:19:52 Do You Have An Advance Directive? No [email or web address] Information n ot available 02/23/2023 What Is [...] 11/19/2019 02:46:07 Tdap 2 completed AMOS Foster, [place] - [facility] 05/27/2022 12:18:14 pneumococcal polysaccharide [id number] 2 completed AMOS Foster, [place] - [facility] 05/27/2022 12:16:32 Past Encounters Encounter ID Performer Location Encounter Start Date Encounter Closed Date Diagnosis/Indication Diagnosis SNOMED-CT Code Diagnosis ICD10 Code Diagnosis Note [id number] Roel (Adult Med) [address] [place] [address] [id number] 0 02/02/2015 10:57:17 02/02/2015 15:40:57 Essential hypertension 52556790 Hyperlipidemia 03044600 Contact dermatitis 36727548 Sinusitis 45902178 Type 2 julien betes mellitus 02116265 Acute whee zy bronchitis 241379666 [id number] FRANCISCO J Elena (Adult Med) [address] [place] [address] [id number] 0 05/07/2015 11:10:48 05/07/2015 12:06:09 Contact dermatitis 68227264 Essential hypertension 14934495 Hyperlipidemia 63176411 Gastroesop hageal reflux disease 165953449 [id number] FRANCISCO J Elena (Adult Med) [address] [place] [address] [id number] 0 07/18/2015 09:42:21 07/18/2015 10:39:23 Dominguez's esophagus 857751398 Contact dermatitis 80515724 Essential hypertension 79068157 Gastroesop hageal reflux disease 929461002 Hyperlipidemia 40340629 Type 2 julien betes mellitus 14193256 Impotence 390772560 Adult heal th examination 564372830 Snoring 92188383 tosses , turns, wakes up gasping , present fpor years getting worse. [id number] NATHAN Lackey (Adult Med) [address] [place] [address] [id number] 0 04/21/2016 14:00:25 04/21/2016 18:04:40 Gastroesophageal reflux disease 772285288 K21.0 Hyperlipidemia 50334575 E78.5 Type 2 julien betes mellitus 72353555 E11.9 Acute whee zy bronchitis 209178082 J20.9 Contact dermatitis 46330 004 L25.9 Essential hypertension 57008297 I10 Screening for malignant neoplasm of prostate 593596630 Z12.5 [id number] NATHAN Lackey (Adult Med) [address] [place] [address] [id number] 0 06/16/2016 10:10:37 06/16/2016 11:22:57 Tinea corporis 03114765 B35.4 Dominguez's esophagus 3029 01041 K22.70 Essential hypertension 31128498 I10 Gastroesop hageal reflux disease 754376006 K21.0 Hyperlipidemia 46830121 E78.5 Impotence 294875342 N52. 9 Type 2 julien betes mellitus 02008004 E11.9 Onychomycosis 881780760 B35.1 Eczema 70457347 L30.9 [id number] Shilpi Katzjessica Sevilla (Adult Med) [address] [place] [address] [id number] 0 08/14/2016 10:28:14 08/14/2016 11:21:53 Eczema 66999740 L30.9 Essential hypertension 09829622 I10 Gastroesop hageal reflux disease 163933005 K21.0 Hyperlipidemia 95334342 E78.5 Type 2 julien betes mellitus 94567733 E11.9 Snoring 63718174 R06.83 tosses , turns, wakes up gasping , present fpor years getting worse. Shoulder pain 78604704 M 25.512 Chronic neck pain 739974 9932 107 M54.2 [id number] NATHAN Lackey (Adult Med) [address] [place] [address] [id number] 0 12/14/2017 15:21:23 12/14/2017 16:09:39 Folliculitis 02091320 L73.9 Contact dermatitis 47684 004 L25.9 Lipoma of skin 860229373 D17.30 right middle finger , lateral aspect Acute whee zy bronchitis 849292407 J20.9 Essential hypertension 58529868 I10 Type 2 julien betes mellitus 28081745 E11.9 Hyperlipidemia 37833593 E78.5 Screening for malignant neoplasm of prostate 126030917 Z12.5 Bladder mu scle dysfunction - overactive 692348093 N32.81 Dominguez's esophagus 3029 94871 K22.70 Gastroesop hageal reflux disease 673647776 K21.0 [id number] NATHAN Lackey (Adult Med) [address] [place] [address] [id number] 0 02/11/2018 09:58:55 02/11/2018 11:12:54 Hepatitis C screening 876310893 Z11.59 Gastroesop hageal reflux disease 729091831 K21.0 Type 2 julien betes mellitus 66313919 E11.9 Hyperlipidemia 15529285 E78.5 Essential hypertension 63796628 I10 [id number] NATHAN Lackey (Adult Med) [address] [place] [address] [id number] 0 03/17/2018 09:52:40 03/17/2018 11:30:30 Dominguez's esophagus 784638111 K22.70 Initiate omperazole 20mg QD to minimize risk of esophageal cancer. Refer for repeat EGD Type 2 julien betes mellitus 42905223 E11.9 Sugars well-contr olled at home. C/W early regimen. Refer to podiatry. Hyperlipidemia 56449656 E78.5 C/W current regimen. Essential hypertension 59155009 I10 Elevated to 175/10 today in clinic off meds. Patient reports well controlled pressures of less than 120/80 at home. Recheck in clinic in 10 days. Hyperkalemia 02033990 E8 7.5 Elevated at 5.2 at last check. Repeat BMP. Visual impairment 405762 003 H54.7 Patient reports 6-7 months of increased blurriness of vision. Refer to ophthamolo gy. Gastroesop hageal reflux disease 496581673 K21.0 Joint pain 94838740 M25. 50 Patient has been told he has RA in the past. Pruritic rash 53568947 L 28.2 Chronic x6-7 years. Unclear etiology Refer to derm [id number] NATHAN Lackey (Adult Med) [address] [place] [address] [id number] 0 05/12/2018 10:24:15 05/12/2018 11:31:22 Carpal tunnel syndrome of right wrist 6767981539 48657 G56.01 Bladder mu scle dysfunction - overactive 607330615 N32.81 Gastroesop hageal reflux disease 963419153 K21.0 Dominguez's esophagus 3029 38800 K22.70 Initiate omperazole 20mg QD to minimize risk of esophageal cancer. Refer for repeat EGD Impotence 138632905 N52. 9 Type 2 julien betes mellitus 78909641 E11.9 Sugars well-contr olled at home. C/W early regimen. Refer to podiatry. Hyperlipidemia 86441655 E78.5 C/W current regimen. Essential hypertension 08487342 I10 Elevated to 175/10 today in clinic off meds. Patient reports well controlled pressures of less than 120/80 at home. Recheck in clinic in 10 days. [id number] NATHAN Lackey (Adult Med) [address] [place] [address] [id number] 0 07/14/2018 11:17:58 07/14/2018 12:35:39 Low back pain 087751771 M54.5 Depressive disorder 3548 9007 F33.8 Essential hypertension 17344455 I10 Elevated to 175/10 today in clinic off meds. Patient reports well controlled pressures of less than 120/80 at home. Recheck in clinic in 10 days. Anxiety 00506948 F41.9 Type 2 julien betes mellitus 64453822 E11.9 Sugars well-contr olled at home. C/W early regimen. Refer to podiatry. Dominguez's esophagus 3029 97261 K22.70 Initiate omperazole 20mg QD to minimize risk of esophageal cancer. Refer for repeat EGD Hyperlipidemia 02627892 E78.5 C/W current regimen. [id number] NATHAN Lackey (Adult Med) [address] [place] [address] [id number] 0 12/16/2019 10:38:30 12/16/2019 12:04:17 Hyperlipidemia 79527719 E78.5 C/W current regimen. Essential hypertension 47413718 I10 Elevated to 175/10 today in clinic off meds. Patient reports well controlled pressures of less than 120/80 at home. Recheck in clinic in 10 days. Constipation 13317665 K5 9.00 Chest pain 11031253 R07. 9 Dominguez's esophagus 3029 98626 K22.70 Initiate omperazole 20mg QD to minimize risk of esophageal cancer. Refer for repeat EGD Depressive disorder 3548 9007 F33.8 Screening for malignant neoplasm of prostate 833019670 Z12.5 High hemog lobin A1c level 111694526 R73.09 Eczema 75595164 L30.9 Contact dermatitis 12074 004 L25.9 Costal chondritis 327034 04 M94.0 Type 2 julien betes mellitus 92799582 E11.9 Sugars well-contr olled at home. C/W early regimen. Refer to podiatry. Low back pain 802938122 M54.5 Gastroesop hageal reflux disease 921555572 K21.0 [id number] NATHAN Lackey (Adult Med) [address] [place] [address] [id number] 0 04/25/2022 11:25:22 04/28/2022 14:11:09 Essential hypertension 86211938 I10 Elevated to 175/10 today in clinic off meds. Patient reports well controlled pressures of less than 120/80 at home. Recheck in clinic in 10 days. Gastroesop hageal reflux disease 111996209 K21.9 Hyperlipidemia 13607415 E78.5 C/W current regimen. Low back pain 138739089 M54.50 Contact dermatitis 15715 004 L25.9 Type 2 julien betes mellitus 64996357 E11.9 Sugars well-contr olled at home. C/W early regimen. Refer to podiatry. Chronic id iopathic constipation 30896261 K59.04 Screening for malignant neoplasm of prostate 446461452 Z12.5 Anxiety 75470674 F41.9 Dominguez's esophagus 3029 27182 K22.70 Initiate omperazole 20mg QD to minimize risk of esophageal cancer. Refer for repeat EGD Depressive disorder 0945 9007 F33.8 [id number] NATHAN Lackey (Adult Med) [address] [place] [phone] 05/27/2022 09:29:10 05/27/2022 11:21:46 Essential hypertension 99764125 I10 Elevated to 175/10 today in clinic off meds. Patient reports well controlled pressures of less than 120/80 at home. Recheck in clinic in 10 days. Gastroesop hageal reflux disease 161510551 K21.9 High hemog lobin A1c level 924570963 R73.09 Hyperlipidemia 74146482 E78.5 C/W current regimen. Low back pain 141600443 M54.50 Type 2 julien betes mellitus 65572544 E11.9 Sugars well-contr olled at home. C/W early regimen. Refer to podiatry. Venereal d isease screening 969787433 Z11.3 Right flank pain 3941892 09 R10.9 Trigger th umb of right hand [id number] 05357 M65.311 Bilateral hearing loss 71958357 H91.93 Administra tion of tetanus vaccine 941668304 Z23 Administra tion of pneumococcal vaccine 47912646 Z23 Cough 57074661 R05.9 Anxiety 08672557 F41.9 Dominguez's esophagus 3029 71631 K22.70 Initiate omperazole 20mg QD to minimize risk of esophageal cancer. Refer for repeat EGD Chronic id iopathic constipation 49804335 K59.04 Depressive disorder 3548 9007 F33.8 Onychomycosis 525208481 B35.1 [id number] NATHAN Lackey (Adult Med) [address] [place] [address] [phone] 0 06/30/2022 09:29:37 07/01/2022 09:10:07 Dominguez's esophagus 672467391 K22.70 Initiate omperazole 20mg QD to minimize risk of esophageal cancer. Refer for repeat EGD Chronic id iopathic constipation 33900697 K59.04 Essential hypertension 45787522 I10 Elevated to 175/10 today in clinic off meds. Patient reports well controlled pressures of less than 120/80 at home. Recheck in clinic in 10 days. Hyperlipidemia 27363432 E78.5 C/W current regimen. Low back pain 691949753 M54.50 Type 2 julien betes mellitus 18958674 E11.9 Sugars well-contr olled at home. C/W early regimen. Refer to podiatry. Cough 08462425 R05.9 Screening for malignant neoplasm of colon 977027933 Z12.11 Carpal jeremías jaime syndrome of right wrist [id number] 65888 G56.01 Depressive disorder 3548 9007 F33.8 Gastroesop hageal reflux disease 990571976 K21.9 [id number] MD Roel Pablo (Adult Med) [address] [place] [address] [phone] 11/20/2022 09:38:36 11/25/2022 12:05:50 Morbid obesity 864046495 E66.01 BMI is 50.8, he has been advised to watch his diabetic diet, low salt, low animal fat diet, and lose some weight. Type 2 julien betes mellitus 80541001 E11.9 Will do A!c today . 5.8% Essential hypertension 39315832 I10 BP is 120/70 as 11-20-201 3. Screening for malignant neoplasm of colon 287273943 Z12.11 Right abdomen pain after each BM, family histor of cancer. older brother has liver cancer. Dyslipidemia 701504204 E 78.5 Low animal fat diet. Family his tory of diabetes mellitus 883095894 Z83.3 A1c is 5.8% today 11-20-2022 . Screening for malignant neoplasm of prostate 570132598 Z12.5 He agreed, 11-20-2022 Hyperlipidemia 47177081 E78.5 Low animal fat diet. Hearing loss 11311402 H9 1.92 [id number] Chadwick Luna MD [facility] [address] [place] [address] 01/26/2023 13:41:15 01/29/2023 15:14:59 Impacted cerumen 04166015 H61.20 Sensorineu ral hearing loss of bilateral ears 350047072 H90.3 follow-up after audiogram Chronic rhinitis 8217779 6 J31.0 [id number] Landen King MD [facility] (Adult Med) [address] [place] [address] [phone] 02/18/2023 11:18:46 02/19/2023 10:38:30 Bilateral hearing loss 63101585 H91.93 Wants up dated referring for follow up at same place, hearing aides are in the process of preparing. , also sees ENT dr. Link in [facility]. Liver func tion tests outside reference range 819302771 R94.5 Will do the LFT and U/S of liver. Essential hypertension 79757689 I10 BP is 120/70 as 11-20-201 3. As , Bp is 122/78. Under the care of her cardiologi st Dr. Germain Devine Morbid obesity 198040405 E66.01 BMI is 50.8, he has been advised to watch his diabetic diet, low salt, low animal fat diet, and lose some weight. BMI is 51.2, 02-18-23, [id number] Chadwick Luna MD [facility] [address] [place] [address] 02/23/2023 09:07:17 02/25/2023 12:21:49 Sensorineural hearing loss of bilateral ears 731017364 H90.3 follow-up after audiogram follow-up for hearing aids return here if he has further difficulti es [id number] [facility] [address] [place] [phone] 0 05/20/2023 09:12:54 05/21/2023 15:30:53 Chronic low back pain 164529030 M54.50 Discussed with patient, he agreed to try PT for 6 weeks. im=n addtion to x ray and med as ordered. Chronic neck pain 302173 7389 107 M54.2 Discussed with patient , he agreed for the PT, 6 weeks, x ray. and med as ordered. Morbid obesity 774840346 E66.01 BMI is 50.8, he has been advised to watch his diabetic diet, low salt, low animal fat diet, and lose some weight. BMI is 51.2, 02-18-23, As , BMI is 51.9 [id number] Landen King MD [facility] (Adult Med) [address] [place] [address] [phone] 0 07/21/2023 09:41:58 07/24/2023 14:59:50 Type 2 diabetes mellitus 39495181 E11.9 Will do A!c today . 5.8% Chronic neck pain 998370 1675 107 M54.2 Discussed with patient , he agreed for the PT, 6 weeks, x ray. and med as ordered. Essential hypertension 57181720 I10 BP is 120/70 as 11-20-201 3. As , Bp is 122/78. Under the care of her cardiologi st Dr. Germain Devine Gastroesop hageal reflux disease 029623922 K21.9 Stable. Hyperlipidemia 30069360 E78.5 Low animal fat diet. Chronic low back pain 27 8191335 M54.50 Discussed with patient, he agreed to try PT for 6 weeks. in addtion to x ray and med as ordered.[address] to get up and get out of bed. Degenerati ve joint disease involving multiple joints 876176457 M15.9 Stiff all over, hard to move . Onychomyco sis of toenails 471059273 B35.1 Dyslipidemia 213737382 E 78.5 Low animal fat diet. Morbid obesity 953419027 E66.01 BMI is 50.8, he has been advised to watch his diabetic diet, low salt, low animal fat diet, and lose some weight. BMI is 51.2, 02-18-23, As , BMI is 51.9. As 07-21-23, BMI down to 44.2. [id number] Landen King MD [facility] (Adult Med) [address] [place] [phone] 0 09/17/2023 08:59:57 09/22/2023 16:00:40 Spinal stenosis of lumbar region 88780760 M48.062 Will do PT and MRI. he agreed. Non-alcoho lic fatty liver 305780994 K76.0 Stable. Morbid obesity 783993334 E66.01 BMI is 50.8, he has been advised to watch his diabetic diet, low salt, low animal fat diet, and lose some weight. BMI is 51.2, 02-18-23, As , BMI is 51.9. As 07-21-23, BMI down to 44.2. BMI is down to 43.7 today 09-17-23. Hyperlipidemia 81513928 E78.5 Low animal fat diet. Type 2 julien betes mellitus 88158944 E11.9 Will do A!c today . 5.8% [id number] [facility] [address] [place] [phone] 0 10/16/2023 10:54:30 10/19/2023 14:42:40 Screening for malignant neoplasm of colon 862261666 Z12.11 Right abdomen pain after each BM, family histor of cancer. older brother has liver cancer. Erectile dysfunction 860 368933 F52.21 Essential hypertension 63800241 I10 BP is 120/70 as 11-20-201 3. As , Bp is 122/78. Under the care of her cardiologi st Dr. Germain Devine, BP re-check is 140/[address] King, today 10-16-23. Med refills , if has ant question, he can contact his cardiologi st, Hyperlipidemia 28892072 E78.5 Low animal fat diet. Chronic low back pain 27 8660246 M54.50 Discussed with patient, he agreed to try PT for 6 weeks. in addtion to x ray and med as ordered.[address] rd to get up and get out of bed. Degenerati ve joint disease involving multiple joints 804501283 M15.9 Stiff all over, hard to move . [id number] MD Roel Strange (Adult Med) [address] [place] [address] [phone] 0 03/04/2024 10:45:16 03/04/2024 12:53:53 Essential hypertension 48378244 I10 Type 2 julien betes mellitus 78521434 E11.9 Spinal tera nosis of lumbar region 30905882 M48.061 Chronic low back pain 27 1890958 M54.50 Gastroesop hageal reflux disease without esophagitis 568042085 K21.9 Steatosis of liver 1007 K76.0 [id number] MD Roel Strange (Adult Med) [address] [place] [address] [phone] 0 07/06/2024 09:03:24 07/06/2024 10:41:07 Essential hypertension 01579100 I10 Hyperlipidemia 65856354 E78.5 Gastroesop hageal reflux disease without esophagitis 839425354 K21.9 Pruritic disorder 462043 002 L29.9 Screening for malignant neoplasm of colon 854006914 Z12.11 Screening for malignant neoplasm of prostate 734566427 Z12.5 Fatigue 34987578 R53.83 Health Concerns Section Related Observation LastModified by Organization Detai ls LastModified Time None Recorded Concern Status LastModified by Organization Details LastModified Time None Recorded Advance Directives Directive N: Payers Encounter Date Sequence Insurance Name Policy Number Policy Sun Covered Member ID Sun Member ID Guarantor Name 07/21/2023 1 [place] Corey Sampson [id number] Corey Sampson 07/21/2023 2 [place] WHEN MEDICARE OR MEDICARE REPLACEMENT PRIMARY) Corey Corralesdows [id number] Corey Corralesdows 09/17/2023 1 [place] Corey Sampson [id number] Corey Corralesdows 09/17/2023 2 [place]PLACEMENT [place]) Corey Corralesdows [id number] Corey Sampson 10/16/2023 1 [place] Corey Corralesdows [id number] Corey Sampson 10/16/2023 2 [place]PLACEMENT [place]IMARY) Corey Camilla [id number] Corey Sampson 03/04/2024 1 [place] Corey Corralesdows [id number] Corey Camilla 03/04/2024 2 [place] MEDIC[place] REPLACEMENT PRIMARY) Corey Camilla [id number] Corey Sampson 07/06/2024 1 [place] Corey Corralesdows [id number] Corey Sampson 07/06/2024 2 [place] OR MEDIC[place] REPLACEMENT PRIMARY) Corey Sampson [id number] Corey Sampson Notes Date Note Type Note Provider Name and Address Organization Details Recorded Time 07/21/2023 text/html OFFICE VISIT, JHONY CONSTANTINO. history of type 2 DM, mutiple joints stiffness, and morbid obesity. Med refills. Landen King MD Attn: [address] [place], [address], [facility] 07/21/2023 18:19:17 09/17/2023 text/html Office visit, NK DA. history of type 2 DM.obesity, chronic lower back pain, fatty liver, check up. no chest pain, no difficulty of breathing, no fever, ROS as noted in HPI., Landen King MD Attn: [address] [place], [address], [place] [facility] 09/18/2023 19:22:32 10/16/2023 text/html [...] HPI. Landen King MD Attn: [address] [place], [address], [facility] - [facility] 10/16/2023 11:48:38 03/04/2024 text/html 73-year-old was seeing a previous provider looks like from the chart I can see that he has a history of hypertension and hyperlipidemia neuropathy low back pain mild sleep apnea spinal stenosis fatty liver 6 cm right midpole cyst prediabetes Dominguez's esophagus obesity heart cath 2021 clean coronary arteries Gallito Starkey MD Attn: [address] [place], [address], [facility] 03/20/2024 16:18:55 07/06/2024 text/html has [...] colonoscopy Gallito Starkey MD Attn: [address] [place], [address], [facility] 07/09/2024 13:29:22
[2024-12-21] MEDS: LACTATED RINGERS 1,000 ML 30 ML IV CONT ×3 (07:45→11:48)
--- NOTE | 2024-12-21 08:16 | PM.IMHP ---
H&P: [facility] History of Present Illness Date/Time: 12/21/24 08:16 Chief Complaint: neurogenic claudication Narrative: Mr. Sampson is a 74-year-old male with history of hypertension and hyperlipidemia who was referred by [facility] for evaluation of low back pain. He describes pain over the last 3 years which has worsened over the last 6-7 months in particular. 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 His pain is constant in the lower back and radiates down the legs, more so on the right side, to the mid calf area. He sometimes has paresthesias in the right lower leg. He feels a sense of fatigue and heaviness of his legs, especially on the right side, and especially with walking. He has tried prescription pain medication, muscle relaxers, Advil, and gabapentin. He had recent physical therapy without improvement. He has seen a chiropractor in the past. He also had several epidural steroid injections at L4-5 at [facility] which were helpful for several days at most. He recently had a cardiac cath with his nuclear control operator Dr. Devine in [place]. He states that this was normal. He takes a baby aspirin on occasion. He does not smoke. He lives alone in an apartment. Review of Systems Review of Systems: All systems reviewed & are unremarkable except as noted in HPI and below PMFSH Family History Family History Father Heart disease Mother Cancer Social History Social History Smoking status: Never smoker Alcohol intake: former Substance use: former Substance use type: does not use Do You Feel Safe in your Home?: Yes Lack of Transportation: No Lack of Food: Never True Current Housing: Decline to Answer Concerned About Future Housing: No Difficulty Paying Gas/Electric Bills: No Difficulty Paying for Meds: No Currently Unemployed: Decline to Answer Education: High School Diploma/GED Difficulty w/ Childcare or Family Care: No Additional living arrangements comments: Spiritual care concerns: No Meds Home Medications and Allergies Home Medications ?Medication ?Instructions ?Recorded ?Confirmed ?Type amlodipine 10 mg tablet 10 mg PO DAILY 09/08/24 12/21/24 History atorvastatin 20 mg tablet 20 mg PO QPM 09/08/24 12/21/24 History gabapentin 600 mg tablet 600 mg PO TID 09/08/24 12/21/24 History losartan 100 1 tablet PO DAILY 09/08/24 12/21/24 History mg-hydrochlorothiazide 25 mg tablet metoprolol tartrate 25 mg tablet 25 mg PO BID 09/08/24 12/21/24 History tizanidine 4 mg tablet 4 mg PO QHS PRN Muscle Spasm 09/08/24 12/21/24 History aspirin 81 mg chewable tablet 81 mg PO DAILY 12/09/24 12/21/24 History (Karen Chewable Low Dose Aspirin) Allergies Allergy/AdvReac Type Severity Reaction Status Date / Time No Known Allergies Allergy Verified 12/21/24 07:40 Vital Signs Vital Signs - 24 hr 12/21/24 06:15 Temperature 97.5 F L Pulse Rate 66 Blood Pressure 115/55 L Pulse Oximetry 96 Oxygen Delivery Room Air Exam Narrative: Swelling of the right calf compared to the left. There is no tenderness to palpation of the calf or erythema he has difficulty keeping the fingers of his right hand extended. He states this is related to a previous carpal tunnel surgery Unless otherwise stated above, the patient's physical exam is as follows: General: -Well developed and well nourished. No acute distress. Cooperative with exam. Mental status: -Awake and oriented to person, place, and time. Affect is normal. -Fund of knowledge appropriate -Recent and remote memory are intact -Attention span and concentration appear normal -Language function is normal -There is no evidence of aphasia in conversational speech. Cranial nerves: -CN II: Visual pascual full to bedside confrontation -CN III, IV, : Pupils equal, round, and reactive to light; extraocular movements, no ptosis, no nystagmus -CN V: Facial sensation intact in V1 through V3 distributions -CN VII: Face symmetric -CN VIII: Hearing intact to conversational speech -CN IX, X: Palate elevates symmetrically; normal phonation -CN XI: Symmetric full strength of sternocleidomastoid and trapezius muscles -CN XII: Tongue protrudes midline Integumentary: -No obvious skin lesions or masses Motor: -Muscle tone normal without spasticity of flaccidity. No atrophy. No fasciculations. -No pronator drift -Right upper extremity: deltoid 5/5, biceps 5/5, triceps 5/5, wrist extensors 5/5, wrist flexors 5/5, intrinsics 5/5 -Left upper extremity: deltoid 5/5, biceps 5/5, triceps 5/5, wrist extensors 5/5, wrist flexors 5/5, intrinsics 5/5 -Right lower extremity: iliopsoas 5/5, quadriceps 5/5, hamstrings 5/5, tibialis anterior 5/5, gastroc-soleus 5/5, EHL 5/5 -Left lower extremity: iliopsoas 5/5, quadriceps 5/5, hamstrings 5/5, tibialis anterior 5/5, gastroc-soleus 5/5, EHL 5/5 Sensory: -Intact to light touch throughout -Normal proprioception throughout Reflexes: -1-2+ DTR's throughout -No Cowart's, clonus, or Babinski bilaterally Musculoskeletal: -Lumbar spine: no tenderness to palpation, no pain, and normal lumbosacral spine movements -Dnsbczyq-cbo-yoavr test negative -Hip: normal range of motion, no crepitus bilaterally. No pain reproduced on SAMY or FAIR testing bilaterally -Knee: no instability, subluxation or laxity, and no crepitus bilaterally I personally reviewed the MRI lumbar spine in PACS which shows severe central stenosis at L4-5 from a combination of facet arthropathy and ligamentum flavum hypertrophy. Assessment and Plan Assessment and plan (1) Lumbar stenosis with neurogenic claudication: Code(s): M48.062 - Spinal stenosis, lumbar region with neurogenic claudication Status: Acute Plan Mr. Sampson is a 74-year-old male with a 3 year history of lower back pain radiating into the legs with claudicatory sense of weakness and heaviness in the legs with walking which has been resistant to physical therapy, epidural steroid injections, and medication management. MRI lumbar spine shows severe central stenosis at L4-5 from a combination of facet arthropathy and ligamentum flavum hypertrophy. I reviewed the images together in clinic. I have offered him surgery in the form of an L4-5 laminectomy. We discussed surgery in detail including risks, expected recovery, and restrictions after surgery. We discussed that this will likely be helpful for his leg pain and hopefully for his back pain, but I suspect that his back pain is multifactorial. We did discuss that his weight is likely contributing to both his back and his knee pain.
--- NOTE | 2024-12-21 08:20 | WPDHPUPDATE1 ---
History and Physical Update Update Date/Time: 12/21/24 08:20 History and Physical has been reviewed, including an updated exam of the patient. There are NO changes in the patient's condition. Risks, benefits, and alternatives have been discussed and questions answered. Patient agrees to proceed with procedure.
--- NOTE | 2024-12-21 08:25 | P.PNAN_ITS ---
Anes - Initial Pre Proc Eval Procedure: Operation Date: 12/21/24 08:15 Proposed Procedures p L4-5 Lumbar Laminectomy - Kelly Mckeon MD Date/Time: 12/21/24 08:25 Surgeon: Kelly Mckeon MD Pre Op Diagnosis: lumbar stenosis w/neuro claudication Patient Data Age: 74 Gender: M Height: 1.7 m Weight: 126 kg Last Vital Signs Temp 97.5 F L 12/21/24 06:15 Pulse 66 12/21/24 06:15 BP 115/55 L 12/21/24 06:15 Pulse Ox 96 12/21/24 06:15 O2 Del Method Room Air 12/21/24 06:15 Allergies Allergy/AdvReac Type Severity Reaction Status Date / Time No Known Allergies Allergy Verified 12/21/24 07:40 Home Medications ?Medication ?Instructions ?Recorded ?Confirmed ?Type amlodipine 10 mg tablet 10 mg PO DAILY 09/08/24 12/21/24 History atorvastatin 20 mg tablet 20 mg PO QPM 09/08/24 12/21/24 History gabapentin 600 mg tablet 600 mg PO TID 09/08/24 12/21/24 History losartan 100 1 tablet PO DAILY 09/08/24 12/21/24 History mg-hydrochlorothiazide 25 mg tablet metoprolol tartrate 25 mg tablet 25 mg PO BID 09/08/24 12/21/24 History tizanidine 4 mg tablet 4 mg PO QHS PRN Muscle Spasm 09/08/24 12/21/24 History aspirin 81 mg chewable tablet 81 mg PO DAILY 12/09/24 12/21/24 History (Karen Chewable Low Dose Aspirin) Patient hx anesthesia problems: none Family hx anesthesia problems: none Results Review: All pre-operative results and documents have been reviewed as part of the pre- operative evaluation. [facility] Family History Family History Father Heart disease Mother Cancer Social History Social History Smoking status: Never smoker Alcohol intake: former Substance use: former Substance use type: does not use Do You Feel Safe in your Home?: Yes Lack of Transportation: No Lack of Food: Never True Current Housing: Decline to Answer Concerned About Future Housing: No Difficulty Paying Gas/Electric Bills: No Difficulty Paying for Meds: No Currently Unemployed: Decline to Answer Education: High School Diploma/GED Difficulty w/ Childcare or Family Care: No Additional living arrangements comments: Spiritual care concerns: No Anes - Eval Final PreProcedure Day of Procedure 12/21/24 08:25 Patient weight: morbidly obese Lungs: normal air movement Airway: Mallampati scale and special considerations (Edentulous. ) Neurological: alert and oriented Last oral intake: >/= 8 hours ASA classification: III Emergent: no Anesthetic plan: proceed Anesthesia type and monitoring: general ETT and standard monitoring Results Review: All pre-operative results and documents have been reviewed as part of the pre- operative evaluation. Pt had borderline pos stress test 10/25, f/u cardiac cath w nonobstructive CAD, nml LVEF. Informed Consent: The patient's anesthetic plan and its attendant risks and benefits were discussed with the patient/family/POA. Questions were solicited and answers provided to the satisfaction of the patient/family/POA.
[2024-12-21] MEDS: ceFAZolin 3 GM/D5W 100 ML 100 ML IVPB (08:34)
[2024-12-21] MEDS: BUPIVACAINE/EPINEPHRINE 0.5% 50 ML VIAL 30 ML INFILTRATE (09:32)
--- NOTE | 2024-12-21 10:49 | PM.OP ---
Procedure Note - Brief Procedure Note - Brief Date of procedure: 12/21/24 lumbar stenosis w/neuro claudication Post-op diagnosis: Same Procedure performed: L4-5 laminectomy Surgeon: Kelly Mckeon MD Transportation Maintenance Operator: Mayur Anesthesia: GETA Findings: L4-5 laminectomy without complication Drains: No Packing: No Pathology: None sent Complications: None Condition: Stable Disposition: PACU
--- NOTE | 2024-12-21 10:54 | W.PM.PROC2 ---
Procedure Note - Detailed Date of Procedure 12/21/24 Pre-op Diagnosis lumbar stenosis w/neuro claudication Post-op Diagnosis Same Procedure Performed 1. L4-5 laminectomy 2. Use of C-arm for fluoroscopy 3. Use of microscope for microsurgical dissection Surgeon Kelly Mckeon MD Electronic Design Engineer [facility] Anesthesia General Description of Procedure The patient was brought to the operating room, and general anesthesia was induced. The patient was placed prone on the Gómez frame, and all pressure points were padded. Compression devices were placed on the patient's calves. The skin was cleaned with alcohol. The C-arm was brought onto the field to localize the appropriate disc space and assist with incisional planning. A midline incision was marked. The area was prepped and draped in usual sterile fashion. A time out was conducted, and pre-operative antibiotics were administered. Local anesthesia was injected into the planned incision. The midline skin incision was opened with a 10-blade scalpel, and dissection was carried down with the monopolar cautery to open the fascia. Once the spinous processes were located, a subperiosteal dissection was performed to expose the laminae bilaterally. A self-retaining retractor was placed. The C-arm was brought in to confirm the correct level. The spinous processes were removed with a Leksell. The microscope was draped and brought into the field for microsurgical dissection. The high-speed drill was used to thin the laminae bilaterally to the ligamentum flavum at L4-5. A currette was used to separate the ligament from the bone which was then removed with the Kerrison. The ligamentum was then elevated with a currette and removed. On the left side, there was a small synovial cyst noted which was from the dura and removed with a kerrison. A Woodsen was used to verify adequate decompression at the cranial and caudal aspects of the decompression. Hemostasis was ensured, and the area was copiously irrigated. No evidence of CSF leak was noted. A hemovac drain was placed and tunneled inferiorly to the right. The muscle was loosely approximated with 0-Vicryl. The fascia was closed with 0-Vicryl in an interrupted fashion. The soft tissue was again copiously irrigated. The dermis was closed with 2-0 then 3-0 interrupted Vicryl. The skin was closed with subcuticular 4-0 monocryl. Dermabond was placed. The patient was returned supine on the stretcher, extubated, and transferred to PACU without incident. Billing codes: 36167, 46647 Drains No Packing No Pathology None sent Complications None Condition Stable Disposition PACU [facility] Billing Surgery - Charge Forward: Surgery Billing
--- NOTE | 2024-12-21 12:55 | ADMGEN ---
This patient, Corey Sampson, was admitted to [facility] Surg Room 323-01. Patient/family oriented to hospital policies and general routines including ID bracelet, bed and alarms, visiting hours, pain management, procedures, bathroom and other care routines, personal items, smoking policy, room service/diet, and visiting hours. Information on how to activate the Rapid Response Team has been discussed. Patient/Family are encouraged to report perceived risks to care and to ask questions if they do not understand what they are told or what they should do.
[2024-12-21] MEDS: SODIUM CHLORIDE 0.9% IV 1,000 ML 100 ML IV CONT (13:03)
[2024-12-21] MEDS: ACETAMINOPHEN 500 MG TABLET 1000 MG PO ×3 (13:03→23:30)
[2024-12-21] MEDS: GABAPENTIN 300 MG CAPSULE 600 MG PO ×2 (13:03→17:07)
[2024-12-21] MEDS: ceFAZolin 2 GM/D5W 50 ML 2 GM/50 ML BAG IVPB ×2 (15:17→23:30)
[2024-12-21] MEDS: ATORVASTATIN 20 MG TABLET PO (17:07)
[2024-12-21] MEDS: DOCUSATE SODIUM 100 MG CAPSULE PO (21:19)
[2024-12-22] VITALS (8 sets, daily range): BP systolic 115–134; BP diastolic 56–89; PULSE 69–99; RESP 16–20; TEMP 36.4–37.3; O2SAT 94–96
--- NOTE | ~2024-12-22 | XR_ITS ---
EXAMINATION: XR fluoroscopy no charge DATE: 12/21/2024 16:13 INDICATION: Lumbar spondylosis. TECHNIQUE: A single lateral view of the lumbar spine was obtained. I was not present. Fluoroscopy exp osure time was 11 seconds. COMPARISON: Lumbar spine MRI 10/05/2024 FINDINGS: There are instruments overlying the posterior elements at L4-L5. IMPRESSION: 1. Instrument overlying the posterior elements at L4-L5. Reviewed, dictated and finalized at location A. K KILN BURNER
[2024-12-22] MEDS: ACETAMINOPHEN 500 MG TABLET 1000 MG PO ×3 (05:09→18:01)
[2024-12-22] MEDS: ceFAZolin 2 GM/D5W 50 ML 2 GM/50 ML BAG IVPB (06:52)
[2024-12-22] MEDS: amLODIPine BESYLATE 10 MG TABLET PO (09:16)
[2024-12-22] MEDS: hydroCHLOROthiazide 25 MG TABLET PO (09:16)
[2024-12-22] MEDS: LOSARTAN POTASSIUM 100 MG TABLET PO (09:16)
[2024-12-22] MEDS: DOCUSATE SODIUM 100 MG CAPSULE PO ×2 (09:16→20:53)
[2024-12-22] MEDS: METOPROLOL TARTRATE 25 MG TABLET PO ×2 (09:17→20:53)
[2024-12-22] MEDS: GABAPENTIN 300 MG CAPSULE 600 MG PO ×3 (09:17→18:01)
--- NOTE | 2024-12-22 09:41 | PCPTNOTE ---
On 12/22/24, the student, JUAN MANUEL Jules, provided care and completed [facility] documentation on this patient. I have reviewed the student's documentation and agree with the findings.
[2024-12-22] MEDS: oxyCODONE HCL (*CRX) 5 MG TAB IR 10 MG PO ×2 (09:48→20:55)
[2024-12-22] MEDS: MORPHINE SULFATE (*CRX) 2 MG/ML INJ IV PUSH (12:28)
--- NOTE | 2024-12-22 13:03 | WPDNEUROSGPN ---
Progress Note: A&P Assessment and Plan (1) Status post lumbar laminectomy: Code(s): Z98.890 - Other specified postprocedural states Status: Acute Plan -He thinks he needs another night in the hospital for pain control -Will stop IV medication to ensure oral medications are adequately controlling pain -PT has cleared for discharge home -We reviewed wound care and activity precautions at bedside -Will set up for discharge home tomorrow morning Subjective Date/time seen: 12/22/24 13:03 Interval history: He has quite a bit of incisional pain but state that his legs feel good. He has noticed improvement in his lower extremity symptoms since surgery and was able to walk today including stairs. He did get a dose IV morphine recently due to severe incisional pain. He is tolerating oral intake. Review of Systems Review of Systems: All systems reviewed & are unremarkable except as noted in HPI and below Exam Narrative: Incision c/d/i Full strength in lower extremities Sensation intact to light touch AOx4 Objective Data Vital Signs Vital Signs: Vital Signs - 24 hr 12/21/24 13:27 12/21/24 13:35 12/21/24 14:25 Temperature 96.3 F L 97.8 F Pulse Rate 75 77 Respiratory Rate 16 18 Blood Pressure 106/63 109/72 Pulse Oximetry 95 94 93 Oxygen Delivery Room Air 12/21/24 14:35 12/21/24 15:00 12/21/24 17:50 Temperature 96.4 F L 97.7 F Pulse Rate 78 85 Respiratory Rate 20 20 Blood Pressure 132/85 112/62 Pulse Oximetry 98 96 Oxygen Delivery Room Air 12/21/24 20:00 12/21/24 20:25 12/22/24 01:50 Temperature 98.4 F 99.2 F Pulse Rate 82 73 Respiratory Rate 18 18 Blood Pressure 98/50 L 132/77 Pulse Oximetry 95 96 Oxygen Delivery Room Air 12/22/24 05:50 12/22/24 08:00 12/22/24 09:17 Temperature 98.2 F 97.9 F Pulse Rate 69 84 99 Respiratory Rate 20 16 Blood Pressure 134/65 124/61 Pulse Oximetry 94 95 Oxygen Delivery 12/22/24 12:00 Temperature 97.7 F Pulse Rate 86 Respiratory Rate 18 Blood Pressure 115/89 Pulse Oximetry 94 Oxygen Delivery Intake/Output Intake/Output: Intake & Output 12/19/24 12/20/24 12/21/24 12/22/24 23:59 23:59 23:59 23:59 Intake Total 1790 1177 Balance 1790 1177 Meds/Results Medications: Active Medications Generic Name Dose Route Start Last Admin Trade Name Freq PRN Reason Stop Dose Admin Acetaminophen 1,000 mg 12/21/24 12:00 12/22/24 12:23 Acetaminophen 500 Mg Tablet PO 1,000 mg Q6H JOHN Administration Al Hydrox/Mg Hydrox/Simethicone 20 ml 12/21/24 10:50 Mag Hydrox/Al Hydrox/Simeth 30 Ml Udc PO Q4H PRN Indigestion/Heartburn Amlodipine Besylate 10 mg 12/22/24 09:00 12/22/24 09:16 Amlodipine Besylate 10 Mg Tablet PO 10 mg DAILY JOHN Administration Atorvastatin Calcium 20 mg 12/21/24 18:00 12/21/24 17:07 Atorvastatin 20 Mg Tablet PO 20 mg QPM JOHN Administration Bisacodyl 10 mg 12/21/24 10:50 Bisacodyl 10 Mg Suppository RECTAL DAILY PRN Constipation Cyclobenzaprine HCl 10 mg 12/21/24 10:51 Cyclobenzaprine Hcl 10 Mg Tablet PO TID PRN Muscle Spasms Docusate Sodium 100 mg 12/21/24 21:00 12/22/24 09:16 Docusate Sodium 100 Mg Capsule PO 100 mg Q12HR JOHN Administration Gabapentin 600 mg 12/21/24 13:00 12/22/24 12:23 Gabapentin 300 Mg Capsule PO 600 mg TID JOHN Administration Hydrochlorothiazide 25 mg 12/22/24 09:00 12/22/24 09:16 Hydrochlorothiazide 25 Mg Tablet PO 25 mg QAM JOHN Administration Cefazolin Sodium 2 gm in 50 mls @ 100 mls/hr 12/21/24 16:00 12/22/24 06:52 Ancef 2 Gm/D5w 50 Ml IVPB 12/22/24 15:59 100 mls/hr Q8H JOHN Administration Sodium Chloride 1,000 mls @ 100 mls/hr 12/21/24 10:50 12/21/24 23:30 Normal Saline Iv IV CONT Infused .Q10H JOHN Infusion Losartan Potassium 100 mg 12/22/24 09:00 12/22/24 09:16 Losartan Potassium 100 Mg Tablet PO 100 mg DAILY JOHN Administration Metoprolol Tartrate 25 mg 12/21/24 21:00 12/22/24 09:17 Metoprolol Tartrate 25 Mg Tablet PO 25 mg Q12HR JOHN Administration Morphine Sulfate 2 mg 12/21/24 10:51 12/22/24 12:28 Morphine Sulfate (*Crx) 2 Mg/Ml Inj IV PUSH 2 mg Q2H PRN Administration Breakthrough Pain Ondansetron HCl 4 mg 12/21/24 10:50 Ondansetron Inj 4 Mg/2 Ml Vial IV PUSH Q8H PRN Nausea And Vomiting Oxycodone HCl 5 mg 12/21/24 10:51 Oxycodone Hcl (*Crx) 5 Mg Tab Ir PO Q4H PRN Pain Rated 4-6 Oxycodone HCl 10 mg 12/21/24 10:51 12/22/24 09:48 Oxycodone Hcl (*Crx) 5 Mg Tab Ir PO 10 mg Q4H PRN Administration Pain Rated 7-10 Senna/Docusate Sodium 1 tab 12/21/24 10:50 Senna/Docusate Sodium Tablet PO HS PRN Constipation Radiology Results: ITS Impressions Fluoroscopy 12/21/24 17:50 IMPRESSION: 1. Instrument overlying the posterior elements at L4-L5.
--- NOTE | 2024-12-22 14:09 | WPDANESPN ---
Anes - Prog Note Post-Op Date/Time: 12/22/24 14:09 Vital Signs: Last Vital Signs Temp 36.5 C 12/22/24 12:00 Pulse 86 12/22/24 12:00 Resp 18 12/22/24 12:00 BP 115/89 12/22/24 12:00 Pulse Ox 94 12/22/24 12:00 O2 Del Method Room Air 12/21/24 20:00 O2 Flow Rate 2 12/21/24 12:35 Pain Score (VAS): 4-incisional pain only I/O: Intake & Output 12/21/24 12/22/24 12/22/24 23:59 07:59 15:59 Intake Total 1240 937 240 Balance 1240 937 240 Patient Feedback: Patient satisfied with anesthetic care.
[2024-12-22] MEDS: ATORVASTATIN 20 MG TABLET PO (18:01)
[2024-12-22] MEDS: CYCLOBENZAPRINE HCL 10 MG TABLET PO (20:55)
[2024-12-23 05:02] VITALS: BP 106/53; PULSE 77; RESP 18; TEMP 37; O2SAT 93
[2024-12-23] MEDS: ACETAMINOPHEN 500 MG TABLET 1000 MG PO (05:09)
[2024-12-23] MEDS: LOSARTAN POTASSIUM 100 MG TABLET PO (09:56)
[2024-12-23] MEDS: GABAPENTIN 300 MG CAPSULE 600 MG PO (09:56)
[2024-12-23] MEDS: hydroCHLOROthiazide 25 MG TABLET PO (09:56)
[2024-12-23] MEDS: DOCUSATE SODIUM 100 MG CAPSULE PO (09:56)
[2024-12-23 09:57] VITALS: PULSE 70
[2024-12-23] MEDS: METOPROLOL TARTRATE 25 MG TABLET PO (09:57)
[2024-12-23] MEDS: amLODIPine BESYLATE 10 MG TABLET PO (09:59)
[2024-12-23] MEDS: ENOXAPARIN 40 MG/0.4 ML SYRINGE SUB-Q (10:01)
[2024-12-23] MEDS: oxyCODONE HCL (*CRX) 5 MG TAB IR PO (10:01)
--- NOTE | 2024-12-23 11:53 | PCPTNOTE ---
On 12/23/24, the student, JUAN MANUEL Jules, provided care and completed [facility] documentation on this patient. I have reviewed the student's documentation and agree with the findings.
--- NOTE | 2024-12-28 16:14 | P.DS_ITS ---
DS: Admitting Diagnosis Discharge Date 12/23/24 Admitting Diagnosis lumbar stenosis with neurogenic claudication DS: Discharge Diagnosis Discharge Diagnosis (1) Lumbar stenosis with neurogenic claudication: Code(s): M48.062 - Spinal stenosis, lumbar region with neurogenic claudication Status: Acute (2) Status post lumbar laminectomy: Code(s): Z98.890 - Other specified postprocedural states Status: Acute DS: Summary Hospital Course Hospital Course: Mr. Sampson is a 74-year-old male with history of lumbar stenosis who presented for surgery on December 21. Please see the operative note for more details. He was transferred to the floor after surgery. He worked with Physical therapy who cleared him for discharge home. He had quite a bit of pain on postoperative day 1 and was restored requiring IV medications, so we kept him in the hospital an additional night for pain control. He was tolerating oral intake and voiding independently. He was determined ready for discharge home on postoperative day 2. Time Spent with Patient Time attestation: Total time spent providing and/or coordinating discharge services: Discharge Plan Discharge Consulting providers: Wood Jackson; Yesika Liao; Marcus Davies V. Discharging Clinician: Kelly Mckeon Patient Disposition: Home, Self-Care Activity: other - see discharge instructions Diet: regular Discharge Instructions: Discharge Instructions Procedure: Lumbar laminectomy Your doctor has partially removed one or more lamina from your back (lumbar spine), to remove pressure from the nerve roots. Here are some instructions to follow upon discharge from the hospital to help in your recovery. Wound Care: You may shower and get your incision wet starting on post-operative day 2 (Thursday). You may use soap and water to clean your incision. Lightly dab the incision dry. Do not apply any ointments, creams, or lotions to the incision. Do not take baths or sit in a hot tub or pool for at least 4 weeks after surgery or until approved by your doctor. Your incision is covered with skin glue. This will eventually peel off on its own in 10-14 days. Activity: Until released by your doctor, you should not return to work. You should rest at home and let your body heal. Taking short walks is encouraged, but avoid strenuous exercise. Do not jog, run, bicycle, lift weights, or participate in any other exercises unless specifically allowed by your doctor. Most importantly, avoid lifting objects heavier than about 10 lbs (or carton of milk) as this places a strain on your back. Avoid twisting and bending motions. Avoid prolonged sitting. Where possible, avoid household activities that involve lifting and/or bending such as laundry, grocery shopping, and childcare. Try to arrange for help from friends and family for these activities while your back heals. You should not drive for a few days and must be off narcotic pain medications prior to driving. DO NOT SMOKE TOBACCO. Smoking has been proven to interfere with the normal healing of the bones in your back. Smoking will dramatically reduce the success rate of your surgery. Your doctor can prescribe a patch to help you stop smoking if you would like. Diet: You can return to your usual diet, unless instructed otherwise by your doctor. Medications: You should resume taking all of your normal medications, unless instructed otherwise by your doctor. If you have questions about your normal medications (those prescribed for high blood pressure, for example), call your family doctor or welding machine operator thermit. You will be given a prescription for pain medications and possibly a laxative, as pain medications can cause constipation. Take the pain medicines as inst ructed. Try Tylenol first for pain to see if this will adequately relieve your pain; if not, take the oxycodone as prescribed. You may take up to 1000mg of Tylenol every 6 hours. If your pain is not reasonably controlled by the medications, contact your doctor?s office. Follow-up appointment: The office will contact you to schedule a follow up appointment. If you do not hear from them by the end of the first week after surgery, call to schedule one. When to call our office: Although your surgery and recovery will likely be uneventful, you may have some residual aches and pains in your back and/or legs. This is NORMAL and should improve in the next few weeks. However, should you experience any of the following, call our office immediately. For medical emergencies call 911. For urgent calls after hours, please call our exchange at : 1. Fevers 2. Drainage from your incision 3. Pain that is progressively getting worse, and is not relieved by your me dications 4. New numbness or weakness 5. Difficulty controlling your bladder 6. Loss of control of your bowels Kelly Mckeon MD [facility] [address], [place] [address] Patient Language: Turkmen Stand Alone Forms: General Discharge Instructions Follow-up/Referrals: Kelly Mckeon MD [Physician] - Discharge Medications: New cyclobenzaprine 10 mg Tablet 10 mg PO TID PRN (Reason: Muscle Spasms) 10 Days Qty: 30 0RF sennosides-docusate sodium [Senokot-S] 8.6-50 mg Tablet 1 tab PO BID 7 Days Qty: 14 0RF oxycodone 5 mg Tablet 5 mg PO Q4H PRN (Reason: Pain Rated 4-6) 7 Days Qty: 42 0RF Continued atorvastatin 20 mg tablet 20 mg PO QPM gabapentin 600 mg tablet 600 mg PO TID metoprolol tartrate 25 mg tablet 25 mg PO BID amlodipine 10 mg tablet 10 mg PO DAILY losartan-hydrochlorothiazide 100-25 mg tablet 1 tablet PO DAILY tizanidine 4 mg tablet 4 mg PO QHS PRN (Reason: Muscle Spasm) Held aspirin [Karen Chewable Aspirin] 81 mg tablet,chewable 81 mg PO DAILY Hold Instructions: Resume on 12/28/24. Patient Comments: PT to hold 7 days prior to surgery per DR Mckeon office Date of admission: 12/22/24 13:57 Primary Care Provider: Jess,Gallito Admitting Provider: Kelly Mckeon Attending physician on admission: Kelly Mckeon Condition: Stable
== END 2024-12-23 12:30 | disposition home or self-care (01) | DRG 516 ==
LOC: ANHSURGERY 14:09 → ANH3MEDSUR 14:09
PROVIDERS: Admitting Provider Neurological Surgery; PCP Internal Medicine; Visit Provider Neurological Surgery
PROC: 01NB0ZZ Release Lumbar Nerve, Open Approach (ICD-10-PCS; CPT 63005; principal; 2024-12-21 08:15)
DX: M48.062 Spinal stenosis, lumbar region with neurogenic claudication (principal); Z68.41 Body mass index [BMI] 40.0-44.9, adult; I10 Essential (primary) hypertension; E78.5 Hyperlipidemia, unspecified; E66.01 Morbid (severe) obesity due to excess calories
CPT/HCPCS: 97116; 97161; 97165; 97530; 97535; 99199; A9270; J0690; J1171; J1650; J1940; J2003; J2250; J2270; J2371; J2405; J3010; J7030; J7120